=== PATIENT | female | born 1965 | race Caucasian/White ===

== ENCOUNTER 2016-07-27 22:34 | Emergency (ER) | payer BC ==
--- NOTE | 2016-07-27 23:21 | PDOC ---
[id number] [id number] 07/27/16 23:15 History Source: Unavil. due to pt. cond. Exam Limitations: Clinical Condition, Intoxication - History of Present Illness Initial Comments: 07/27/16 23:19 ENTERED ROOM TO EVALUATE PATIENT. PATIENT LYING WITH EYES CLOSED NOT RESPONDING TO VERBAL OR TACTILE STIMULUS. PATIENT ASSISTED TO SIT UP IN BED, TURNED TO HER RIGHT SIDE AND WENT BACK TO SLEEP. PATIENT IN NO ACUTE DISTRESS AT THIS TIME. WILL ATTEMPT TO RE-EVALUATE PATIENT SHORTLY. 07/28/16 01:54 2ND ATTEMPT AT RE-EVALUATION OF PATIENT. PATIENT TOLD PROVIDER TO LEAVE HER ALONE, SHE IS HERE TO SLEEP. PATIENT NO LONGER ANSWERING QUESTIONS AT THIS POINT. WILL CONTINUE TO REASSESS AND EVALUATE. 07/28/16 06:08 PATIENT AWAKE, ALERT AND COOPERATIVE. NO ACUTE DISTRESS NOTED. PATIENT STATES SHE WOULD LIKE TO GO TO [facility]. SHE WAS RECENTLY IN [facility] AND STAYED FOR 14 DAYS , BUT LEFT BECAUSE SHE WANTED TO DRINK. PATIENT REPORTS THAT HER LAST ALCOHOLIC DRINK WAS YESTERDAY. SHE DENIES CHEST PAIN, ABD PAIN , N/V/D, FEVER, DYSURIA, HEMATURIA, BACK PAIN, OR ANY OTHER COMPLAINTS AT THIS TIME. Past History - Travel Traveled outside of the country in the last 30 days: No Close contact w/someone who was outside of country & ill: No - Past Medical History Allergies/Adverse Reactions: Allergies Allergy/AdvReac Type Severity Reaction Status Date / Time No Known Allergies Allergy Verified 07/28/16 04:52 Home Medications: Ambulatory Orders Cephalexin [Keflex] 500 mg PO BID #14 capsule 07/28/16 Cephalexin Monohydrate [Keflex -] 500 mg PO BID #14 capsule 07/31/16 Asthma: No Cardiac Disorders: No COPD: No Diabetes: No GI Disorders: No Disorders: No HTN: Yes Kidney Stones: No Suicide Attempt (Hx): No Seizures: Yes (No activity in the past 15 years) - Reproductive History PID: No - Psycho/Social/Smoking Cessation Hx Anxiety: No Suicidal Ideation: No Smoking History: Current every day smoker Have you smoked in the past 12 months: Yes Number of Cigarettes Smoked Daily: 12 Cigars Per Day: 0 'Breaking Loose' booklet given: 12/08/12 Hx Alcohol Use: Yes (4 bloody ken and 4-16oz beers/2 days) Drug/Substance Use Hx: No Substance Use Type: Alcohol Hx Substance Use Treatment: No Review of Systems - Review of Systems Able to Perform ROS?: Yes Is the patient limited Swedish proficient: No Constitutional: No: Chills, Fever, Night Sweats Respiratory: No: Cough, Stridor, Wheezing Cardiac (ROS): No: Chest Pain, Palpitations, Syncope, Chest Tightness ABD/GI: No: Constipated, Diarrhea, Nausea, Poor Appetite, Poor Fluid Intake, Rectal Bleeding, Vomiting, Tarry Stools : No: Burning, Dysuria, Discharge, Frequency, Flank Pain, Hematuria, Pain, Urgency Musculoskeletal: No: Back Pain, Joint Pain, Joint Swelling Integumentary: No: Bruising, Erythema, Rash Neurological: No: Headache, Numbness, Seizure, Tremors, Weakness, Unsteady Gait , Ataxia, Dizziness All Other Systems: Reviewed and Negative *Physical Exam - Physical Exam Comments: 07/28/16 06:15 THIS PHYSICAL EXAMINATION WAS DONE A 0615. PRIOR ATTEMPTS UNSUCCESSFUL. PATIENT REFUSED. General Appearance: Yes: Disheveled, Alcohol on Breath, Intoxicated HEENT: positive: EOMI, SERG, Normal ENT Inspection, Normal Voice, Symmetrical, TMs Normal, Pharynx Normal. negative: Nasal Congestion, Rhinorrhea, TM Bulging , TM Dull, TM Erythema Neck: positive: Trachea midline, Supple. negative: Stridor, Lymphadenopathy (R) , Lymphadenopathy (L) Respiratory/Chest: positive: Lungs Clear, Normal Breath Sounds. negative: Respiratory Distress, Accessory Muscle Use, Labored Respiration, Rapid RR, Rhonchi, Stridor, Wheezing Cardiovascular: positive: Regular Rhythm, Regular Rate. negative: Edema, JVD, Murmur Gastrointestinal/Abdominal: positive: Normal Bowel Sounds, Soft. negative: Distended, Guarding, Rebound, Tenderness Musculoskeletal: positive: Normal Inspection. negative: CVA Tenderness Extremity: positive: Normal Capillary Refill, Normal Inspection, Normal Range of Motion. negative: Pedal Edema, Swelling Integumentary: positive: Normal Color, Dry, Warm. 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 ALCOHOL/SUBS ABUSE REHAB Condition at time of disposition: Good Admit: No - Prescriptions Prescriptions: Cephalexin [Keflex] 500 mg PO BID #14 capsule - Patient Instructions Printed Discharge Instructions: DI for Urinary Tract Infection (UTI), DI for Alcohol Abuse Additional Instructions: Please take Keflex as prescribed until completed. Please eat well-balanced meals as your magnesium was low today.
[2016-07-28 04:56] VITALS: BP 128/100; PULSE 78; TEMP 97.9; BMI 21.7
[2016-07-28] MEDS ORDERED: SODIUM CHLORIDE 1,000 ML IV STA (06:07)
[2016-07-28] MEDS ORDERED: FAMOTIDINE 20 MG/50 ML IVPB 50 ML IVPB ONE ×2 (06:07→06:39)
[2016-07-28 07:19] LABS: BASOPHIL 1.4 % (0-2.0); EOSINOPHIL 1.4 % (0-4.5); MCH 36.6 pg (25.7-33.7); MCHC 34.6 g/dl (32.0-36.0); MEAN CELL VOLUME 105.9 fl (80-96); MEAN PLT VOLUME 9.2 fl (7.5-11.1); NEUTROPHILS 51.5 % (42.8-82.8); PLATELET COUNT 112 K/MM3 (134-434); RDW 13.9 % (11.6-15.6); WHITE BLOOD COUNT 5.9 K/mm3 (4.0-10.0)
--- NOTE | 2016-07-28 07:27 | PDOC ---
*Physical Exam - Vital Signs Last Vital Signs Temp Pulse Resp BP Pulse Ox 97.9 F 78 19 128/100 99 07/28/16 04:53 07/28/16 04:53 07/28/16 04:53 07/28/16 04:53 07/28/16 04:53 Heart Score/ECG Review - ECG Intrepretation Rhythm: Regular Rhythm (rate 62, Left atrial enlargment. No acute findings) ED Treatment Course - LABORATORY CBC & Chemistry Diagram: 07/28/16 06:30 07/28/16 06:30 - Medications Given in the ED: ED Medications Discontinued Medications Generic Name Dose Route Start Last Admin Trade Name Jaredq PRN Reason Stop Dose Admin Famotidine/Sodium Chloride 50 mls @ 100 mls/hr 07/28/16 06:07 07/28/16 06:50 Pepcid 20 Mg Premixed Ivpb - IVPB 07/28/16 06:36 100 mls/hr ONCE ONE Administration Sodium Chloride 1,000 mls @ 1,000 mls/hr 07/28/16 06:07 07/28/16 06:49 Normal Saline - IV 07/28/16 07:06 1,000 mls/hr ASDIR STA Administration Medical Decision Making - Medical Decision Making 07/28/16 07:27 Patient received in sign out from EMAIL MANAGER Femi. Patient here for alcohol intoxication now requesting detox. Labs including EKG are pending. 07/28/16 09:16 Laboratory Tests 07/28/16 07/28/16 07/28/16 06:30 06:30 06:30 WBC 5.9 D Hgb 13.4 Hct 38.8 MCV 105.9 H Neutrophils % 51.5 Monocytes % 14.9 H Sodium 142 Potassium 3.5 Chloride 101 Carbon Dioxide 29 Anion Gap 12 BUN 6 L D Creatinine 0.4 L Calcium 8.0 L Magnesium 1.6 L Urine Nitrite Ur Leukocyte Esterase Urine HCG, Qual Salicylates < 4.0 Acetaminophen < 2.0 L Alcohol, Quantitative 136.3 H* 07/28/16 07:10 WBC Hgb Hct MCV Neutrophils % Monocytes % Sodium Potassium Chloride Carbon Dioxide Anion Gap BUN Creatinine Calcium Magnesium Urine Nitrite Positive Ur Leukocyte Esterase 1+ H Urine HCG, Qual Negative Salicylates Acetaminophen Alcohol, Quantitative Laboratory Tests 07/28/16 07:10 Urine RBC 2 Urine WBC 23 Urine Mucus Moderate Patient has urine culture from 2012 that was positive for Escherichia coli sensitive to cephalosporins. Patient be discharged to rehabilitation with Keflex. Patient also will be given 2 g of magnesium secondary to low mag here in the ER and then sent over to [facility] detox. *DC/Admit/Observation/Transfer Diagnosis at time of Disposition: Hypomagnesemia, Alcohol dependence UTI (urinary tract infection) Qualifiers: Urinary tract infection type: acute cystitis Hematuria presence: without hematuria Qualified Code(s): N30.00 - Acute cystitis without hematuria - Discharge Dispostion Disposition: I.P. ALCOHOL/SUBS ABUSE REHAB Condition at time of disposition: Good - Prescriptions Prescriptions: Cephalexin [Keflex] 500 mg PO BID #14 capsule - Patient Instructions Printed Discharge Instructions: DI for Alcohol Abuse, DI for Urinary Tract Infection (UTI) Additional Instructions: Please take Keflex as prescribed until completed. Please eat well-balanced meals as your magnesium was low today.
[2016-07-28 07:32] LABS: ANION GAP 12 (8-16); CO2 29 mmol/L (21-32); CREATININE 0.4 mg/dL (0.55-1.02); GLUCOSE,RANDOM 80 mg/dL (74-106)
[2016-07-28 07:34] LABS: TROPONIN I < 0.02 ng/ml (0.00-0.05)
[2016-07-28 07:50] LABS: SALICYLATE < 4.0 mg/dl (0.0-30.0)
[2016-07-28 07:52] LABS: ALCOHOL 136.3 mg/dl (0-5)
[2016-07-28 08:56] LABS: MAGNESIUM 1.6 mg/dL (1.8-2.4)
[2016-07-28 09:02] LABS: URINE APPEARANCE SLCLOUDY; URINE BILIRUBIN NEGATIVE (NEGATIVE); URINE BLOOD NEGATIVE (NEGATIVE); URINE COLOR DKYELLOW; URINE GLUCOSE (UA) NEGATIVE (NEGATIVE); URINE KETONE NEGATIVE (NEGATIVE); URINE NITRITE POSITIVE (NEGATIVE); URINE PROTEIN NEGATIVE (NEGATIVE); URINE UROBILINOGEN NEGATIVE E.U./dl (0.2-1.0)
[2016-07-28 09:11] LABS: URINE LEUK ESTERASE 1+ (NEGATIVE)
[2016-07-28 09:15] LABS: URINE BACTERIA RARE /hpf (NONE SEEN); URINE HYALINE CAST 2 /lpf; URINE MUCUS MODERATE; URINE RBC 2 /hpf (0-3); URINE WBC 23 /hpf (3-5)
[2016-07-28] MEDS ORDERED: MAGNESIUM SULF 50% (8.12 MEQ/2 ML-1 GM VIAL) IVPB ONE (09:15)
[2016-07-28] MEDS ORDERED: MAGNESIUM SULF 50% (8.12 MEQ/2 ML-1 GM VIAL) ONE (09:16)
[2016-07-28 15:09] LABS: URINE MARIJUANA THC POSITIVE ng/ml (CUTOFF=50)
--- NOTE | 2016-07-28 17:45 | EKG ---
Test Reason : Blood Pressure : / mmHG Vent. Rate : 062 BPM Atrial Rate : 062 BPM P-R Int : 130 ms QRS Dur : 084 ms QT Int : 480 ms P-R-T Axes : 060 044 053 degrees QTc Int : 487 ms NORMAL SINUS RHYTHM POSSIBLE LEFT ATRIAL ENLARGEMENT PROLONGED QT ABNORMAL ECG NO PREVIOUS ECGS AVAILABLE Confirmed by ELIAS VILLAVICENCIO, SANNA ([id number]) on 07/28/2016 5:44:44 PM Referred By: Confirmed By:SANNA GRIFFIN MD
== END 2016-07-28 09:45 | disposition other institution (70) ==
LOC: JER 22:34
PROC: 3E033GC Introduction of Other Therapeutic Substance into Peripheral Vein, Percutaneous Approach (ICD-10-PCS; principal; 2016-07-27)
DX: F10.220 Alcohol dependence with intoxication, uncomplicated (principal); Y90.6 Blood alcohol level of 120-199 mg/100 ml; N39.0 Urinary tract infection, site not specified; B96.29 Other Escherichia coli [E. coli] as the cause of diseases classified elsewhere; E83.42 Hypomagnesemia
CPT/HCPCS: 36415; 80048; 80307; 81003; 81015; 82550; 83735; 84484; 84703; 85025; 87086; 87186; 93005; 93010; 96365; 96375; 99284-25

== ENCOUNTER 2016-07-28 10:12 | Inpatient (IN) | payer BC ==
[2016-07-28 10:44] VITALS: BMI 21.3
--- NOTE | 2016-07-28 12:27 | HP ---
CIWA Score - CIWA Score Nausea/Vomitin-No Nausea/No Vomiting Muscle Tremors: 4-Moderate,w/Arms Extend Anxiety: 4-Mod. Anxious/Guarded Agitation: 4-Moderately Restless Paroxysmal Sweats: 3 Orientation: 0-Oriented Tacttile Disturbances: 0-None Auditory Disturbances: 0-None Visual Disturbances: 0-None Headache: 1-Very Mild CIWA-Ar Total Score: 16 Admission ROS [facility] - HPI Chief Complaint: I am here to detox and try to stay sober. Allergies/Adverse Reactions: Allergies Allergy/AdvReac Type Severity Reaction Status Date / Time No Known Allergies Allergy Verified 07/28/16 10:48 History of Present Illness: pt is a 50yr old female with a history of alcohol dependence seeking detox for treatment. Exam Limitations: No Limitations - Ebola screening Have you traveled outside of the country in the last 21 days: No Have you had contact with anyone from an Ebola affected area: No Have you been sick,other than usual withdrawal symptoms: No Do you have a fever: No - Review of Systems Constitutional: Chills, Diaphoresis, Loss of Appetite, Night Sweats, Unintentional Wgt. Loss EENT: reports: Tearing Respiratory: reports: Cough Cardiac: reports: No Symptoms Reported GI: reports: Diarrhea, Poor Appetite, Poor Fluid Intake : reports: No Symptoms Reported Musculoskeletal: reports: Back Pain, Joint Pain, Muscle Pain Integumentary: reports: Flushing, Sweating Neuro: reports: Headache, Tingling, Tremors Endocrine: reports: Excessive Sweating, Flushing, Intolerance to Cold, Intolerance to Heat Hematology: reports: No Symptoms Reported Psychiatric: reports: Judgement Intact, Orientated x3, Agitated, Anxious Other Systems: Reviewed and Negative Patient History - Patient Medical History Hx Anemia: No Hx Asthma: No Hx Chronic Obstructive Pulmonary Disease (COPD): No Hx Cancer: No Hx Cardiac Disorders: No Hx Congestive Heart Failure: No Hx Hypertension: Yes (not taking any meds) Hx Pacemaker: No HX Cerebrovascular Accident: Yes (last stroke 5yrs ago.) Hx Seizures: No Hx Dementia: No Hx Diabetes: No Hx Gastrointestinal Disorders: No Hx Liver Disease: No Hx Genitourinary Disorders: No Hx Sexually Transmitted Disorders: No Hx Renal Disease (ESRD): No Hx Human Immunodeficiency Virus (HIV): No (negative 2 months ago) Hx Depression: Yes Hx Suicide Attempt: No (denies) Hx Bipolar Disorder: No Hx Schizophrenia: No - Patient Surgical History Past Surgical History: No - PPD History Previous Implant?: Yes Documented Results: Negative w/o proof Implanted On Prior [facility] Admission?: Yes PPD to be Administered?: No - Reproductive History Patient is a Female of Child Bearing Age (11 -55 yrs old): Yes Last Menstrual Period: 06/22/16 Patient : No - Smoking Cessation Smoking history: Current every day smoker Have you smoked in the past 12 months: Yes Aproximately how many cigarettes per day: 20 Cigars Per Day: 0 Hx Chewing Tobacco Use: No Initiated information on smoking cessation: Yes 'Breaking Loose' booklet given: 07/28/16 - Substance & Tx. History Hx Alcohol Use: Yes Hx Substance Use: No Substance Use Type: Alcohol Hx Substance Use Treatment: Yes - Substances Abused Alcohol Route: Oral Frequency: Daily Amount used: 10 BEERS Age of first use: 20 Date of Last Use: 07/28/16 Family Disease History - Family Disease History Family History: Denies Admission Physical Exam [facility] - Vital Signs Vital Signs: Vital Signs - 24 hr 07/28/16 10:38 Temperature 96.1 F L Pulse Rate 89 Respiratory 18 Rate Blood Pressure 150/100 - Physical General Appearance: Yes: Disheveled, Moderate Distress, Tremorous, Irritable, Sweating, Anxious HEENTM: Yes: Normal Voice Respiratory: Yes: Lungs Clear, Normal Breath Sounds, No Respiratory Distress Neck: Yes: Within Normal Limits Breast: Yes: Within Normal Limits Cardiology: Yes: Regular Rate, S1, S2, Tachycardia Abdominal: Yes: Normal Bowel Sounds, Non Tender, Soft Genitourinary: Yes: Within Normal Limits Back: Yes: Normal Inspection Extremities: Yes: Normal Capillary Refill, Normal Inspection, Non-Tender, Tremors Neurological: Yes: Fully Oriented, Alert, Normal Response Integumentary: Yes: Normal Color, Diaphoresis Lymphatic: Yes: Within Normal Limits - Diagnostic (1) Alcohol dependence with uncomplicated withdrawal Current Visit: Yes Status: Chronic (2) Nicotine dependence Current Visit: Yes Status: Chronic Cleared for Admission [facility] - Detox or Rehab [facility] Level of Care: Medically Managed Detox Regimen/Protocol: Librium [facility] Breath Alcohol Content Breath Alcohol Content: 0.034 Urine Pregancy Test - Result Urine Test Results: Negative- NO Line Present Urine Drug Screen - Results Drug Screen Negative: No Urine Drug Screen Results: EDSON-Cocaine
[2016-07-28] MEDS ORDERED: IBUPROFEN 400 MG TABLET (FP) PO PRN (12:30)
[2016-07-28] MEDS ORDERED: chlordiazePOXIDE HCL 25 MG CAPSULE PO PRN (12:30)
[2016-07-28] MEDS ORDERED: LOPERAMIDE HCL 2 MG CAPSULE PO PRN (12:30)
[2016-07-28] MEDS ORDERED: MAGNESIUM CITRATE 300 ML BOTTLE PO PRN (12:30)
[2016-07-28] MEDS ORDERED: hydrOXYzine PAMOATE 50 MG CAPSULE (FP) PO PRN (12:30)
[2016-07-28] MEDS ORDERED: MENTHOL/PHENOL 1 EACH UD MM PRN (12:30)
[2016-07-28] MEDS ORDERED: guaiFENesin/D-METHORPHAN HB 10 ML UNIT-DOSE CUPS PO PRN (12:30)
[2016-07-28] MEDS ORDERED: ACETAMINOPHEN 325 MG TABLET (FP) PO PRN (12:30)
[2016-07-28] MEDS ORDERED: MAG HYDROX/AL HYDROX/SIMETH 30 ML UNIT-DOSE CUP PO PRN (12:30)
[2016-07-28] MEDS ORDERED: NICOTINE POLACRILEX 4 MG GUM BUC PRN (12:30)
[2016-07-28] MEDS ORDERED: MAGNESIUM HYDROX 2400MG/30ML ORAL SUSPENSION 30 ML CUP PO PRN (12:30)
[2016-07-28] MEDS ORDERED: P-EPHED 60MG/TRIPROLIDI 2.5MG TABLET PO PRN (12:30)
[2016-07-28] MEDS ORDERED: chlordiazePOXIDE HCL 25 MG CAPSULE PO ONE (12:39)
[2016-07-28] MEDS ORDERED: cloNIDine HCL 0.1 MG TABLET PO ONE (12:40)
[2016-07-28 16:06] LABS: URINE APPEARANCE TURBID; URINE BILIRUBIN NEGATIVE (NEGATIVE); URINE BLOOD 1+ (NEGATIVE); URINE COLOR AMBER; URINE GLUCOSE (UA) NEGATIVE (NEGATIVE); URINE KETONE NEGATIVE (NEGATIVE); URINE NITRITE POSITIVE (NEGATIVE); URINE PROTEIN 1+ (NEGATIVE); URINE UROBILINOGEN 2.0 E.U/dl E.U./dl (0.2-1.0)
[2016-07-28 16:07] LABS: URINE LEUK ESTERASE 3+ (NEGATIVE)
[2016-07-28 16:19] LABS: URINE BACTERIA FEW /hpf (NONE SEEN); URINE MUCUS RARE; URINE RBC 79 /hpf (0-3); URINE WBC 331 /hpf (3-5)
--- NOTE | 2016-07-28 17:42 | EKG ---
Test Reason : Blood Pressure : / mmHG Vent. Rate : 082 BPM Atrial Rate : 082 BPM P-R Int : 144 ms QRS Dur : 088 ms QT Int : 420 ms P-R-T Axes : 057 036 050 degrees QTc Int : 490 ms NORMAL SINUS RHYTHM POSSIBLE LEFT ATRIAL ENLARGEMENT NONSPECIFIC T WAVE ABNORMALITY PROLONGED QT ABNORMAL ECG WHEN COMPARED WITH ECG OF 28-JUL-2016 06:34, NO SIGNIFICANT CHANGE WAS FOUND Confirmed by ELIAS VILLAVICENCIO, SANNA ([id number]) on 07/28/2016 5:42:24 PM Referred By: Henri Smith Confirmed By:SANNA GRIFFIN MD
[2016-07-28] MEDS: chlordiazePOXIDE HCL 25 MG CAPSULE PO SCH ×2 (18:05→22:25)
[2016-07-28] MEDS: diphenhydrAMINE HCL 50 MG CAPSULE PO PRN (22:25)
[2016-07-28] MEDS: THIAMINE HCL 100 MG TABLET (FP) PO SCH (22:25)
[2016-07-28] MEDS: CEPHALEXIN MONOHYDRATE 500 MG CAPSULE (UD) PO SCH (22:25)
[2016-07-29] MEDS: chlordiazePOXIDE HCL 25 MG CAPSULE PO SCH ×4 (05:48→22:26)
--- NOTE | 2016-07-29 09:30 | CONSULT ---
[facility] Psychiatric Consult - Data Date of interview: 07/29/16 Admission source: [facility] Identifying data: This is 50 years old female with no psychiatric hospitalization history intoxicated with: Alcohol and Nicotine Substance Abuse History: - Smoking Cessation. Smoking history: Current every day smoker. Have you smoked in the past 12 months: Yes. Aproximately how many cigarettes per day: 20. Cigars Per Day: 0. Hx Chewing Tobacco Use: No. Initiated information on smoking cessation: Yes. 'Breaking Loose' booklet given : 07/28/16. - Substance & Tx. History. Hx Alcohol Use: Yes. Hx Substance Use : No. Substance Use Type: Alcohol. Hx Substance Use Treatment: Yes. - Substances Abused. Alcohol. Route: Oral. Frequency: Daily. Amount used: 10 BEERS. Age of first use: 20. Date of Last Use: 07/28/16 Medical History: UTI history Psychiatric History: Patient report history of depression and anxiety, reports n o medications taking prior to admission Physical/Sexual Abuse/Trauma History: Unclear Additional Comment: Observation. Detox Unit Care Protocol Mental Status Exam - Mental Status Exam Alert and Oriented to: Person Cognitive Function: Fair Patient Appearance: Unkempt Mood: Sad Affect: Flat Patient Behavior: Sedated Speech Pattern: Delayed Voice Loudness: Mildly Soft/Quiet Thought Process: Circumstantial Thought Disorder: Being Controlled Hallucinations: Denies Suicidal Ideation: Denies Homicidal Ideation: Denies Insight/Judgement: Fair Sleep: Difficulty falling asleep Appetite: Weight loss Muscle strength/Tone: Mild Hypotonicity Gait/Station: Shuffling Additional Comments: Observation. Detox Unit Care Protocol Psychiatric Findings - Problem List ([place] 1, 2,3) (1) Alcohol dependence with uncomplicated withdrawal Current Visit: Yes Status: Chronic (2) Nicotine dependence Current Visit: Yes Status: Chronic (3) Drug-induced mood disorder Current Visit: Yes Status: Suspected - Initial Treatment Plan Initial Treatment Plan: Observation. Detox Unit Care Protocol
[2016-07-29 10:23] LABS: MCH 36.6 pg (25.7-33.7); MEAN CELL VOLUME 107.6 fl (80-96); MEAN PLT VOLUME 9.7 fl (7.5-11.1); PLATELET COUNT 113 K/MM3 (134-434); RDW 13.9 % (11.6-15.6)
[2016-07-29] MEDS: CEPHALEXIN MONOHYDRATE 500 MG CAPSULE (UD) PO SCH ×2 (10:30→22:25)
[2016-07-29] MEDS: PRENATAL VITAMINS W/ FOLIC ACID TABLET (FP) PO SCH (10:30)
[2016-07-29 10:31] LABS: ALBUMIN 3.1 g/dl (3.4-5.0); ALK PHOS 186 U/L (45-117); ANION GAP 9 (8-16); BILIRUBIN,TOTAL 2.6 mg/dL (0.2-1.0); CALCIUM 8.8 mg/dL (8.5-10.1); CO2 29 mmol/L (21-32); CREATININE 0.5 mg/dL (0.55-1.02); GLUCOSE,RANDOM 83 mg/dL (74-106); SGOT/AST 106 U/L (15-37); SGPT/ALT 53 U/L (12-78); TOT PROT 7.4 g/dl (6.4-8.2)
[2016-07-29] MEDS: NICOTINE 21 MG/24 HOURS TOPICAL PATCH TD SCH (10:32)
[2016-07-29] MEDS ORDERED: PNEUMOC 13-VAL CONJ-DIP CRM/PF 0.5 ML DISP.SYRIN IM ONE (12:00)
[2016-07-29] MEDS ORDERED: PNEUMOCOCCAL 23 VACCINE 0.5 ML VIAL IM ONE (12:00)
--- NOTE | 2016-07-29 13:10 | PN ---
S CIWA - CIWA Score Nausea/Vomitin Muscle Tremors: 3 Anxiety: 3 Agitation: 3 Paroxysmal Sweats: 2 Orientation: 0-Oriented Tacttile Disturbances: 1-Very Mild Itch/Numbness Auditory Disturbances: 1-Very Mild Visual Disturbances: 1-Very Mild Sensitivity Headache: 2-Mild CIWA-Ar Total Score: 19 S Progress Note (SOAP) Subjective: ALERT,IRRITABLE,ANXIOUS,INTERRUPTED SLEEP,TREMOR Objective: 07/29/16 13:07 Vital Signs Temperature 98.2 F 07/29/16 10:16 Pulse Rate 77 07/29/16 10:16 Respiratory Rate 20 07/29/16 10:16 Blood Pressure 131/73 07/29/16 10:16 O2 Sat by Pulse Oximetry (%) EKG NSR NO CHEST PAIN,NO SOB,NO DIZZINESS Laboratory Last Values WBC 7.0 K/mm3 (4.0-10.0) 07/29/16 07:00 RBC 3.77 M/mm3 (3.60-5.2) 07/29/16 07:00 Hgb 13.8 GM/dL (10.7-15.3) 07/29/16 07:00 Hct 40.6 % (32.4-45.2) 07/29/16 07:00 MCV 107.6 fl (80-96) H 07/29/16 07:00 MCHC 34.0 g/dl (32.0-36.0) 07/29/16 07:00 RDW 13.9 % (11.6-15.6) 07/29/16 07:00 Plt Count 113 K/MM3 (134-434) L 07/29/16 07:00 MPV 9.7 fl (7.5-11.1) 07/29/16 07:00 Sodium 138 mmol/L (136-145) 07/29/16 07:00 Potassium 3.5 mmol/L (3.5-5.1) 07/29/16 07:00 Chloride 100 mmol/L (98-107) 07/29/16 07:00 Carbon Dioxide 29 mmol/L (21-32) 07/29/16 07:00 Anion Gap 9 (8-16) 07/29/16 07:00 BUN 6 mg/dL (7-18) L 07/29/16 07:00 Creatinine 0.5 mg/dL (0.55-1.02) L D 07/29/16 07:00 Creat Clearance w eGFR > 60 (>60) 07/29/16 07:00 Random Glucose 83 mg/dL (74-106) 07/29/16 07:00 Calcium 8.8 mg/dL (8.5-10.1) 07/29/16 07:00 Total Bilirubin 2.6 mg/dL (0.2-1.0) H D 07/29/16 07:00 AST 106 U/L (15-37) H 07/29/16 07:00 ALT 53 U/L (12-78) D 07/29/16 07:00 Alkaline Phosphatase 186 U/L (45-117) H 07/29/16 07:00 Total Protein 7.4 g/dl (6.4-8.2) 07/29/16 07:00 Albumin 3.1 g/dl (3.4-5.0) L D 07/29/16 07:00 Urine Color Eliana 07/28/16 14:00 Urine Appearance Turbid 07/28/16 14:00 Urine pH 6.0 (5.0-8.0) 07/28/16 14:00 Ur Specific [place] 1.016 (1.001-1.035) 07/28/16 14:00 Urine Protein 1+ (NEGATIVE) H 07/28/16 14:00 Urine Glucose (UA) Negative (NEGATIVE) 07/28/16 14:00 Urine Ketones Negative (NEGATIVE) 07/28/16 14:00 Urine Blood 1+ (NEGATIVE) H 07/28/16 14:00 Urine Nitrite Positive (NEGATIVE) 07/28/16 14:00 Urine Bilirubin Negative (NEGATIVE) 07/28/16 14:00 Urine Urobilinogen 2.0 e.u/dl E.U./dl (0.2-1.0) H 07/28/16 14:00 Ur Leukocyte Esterase 3+ (NEGATIVE) H D 07/28/16 14:00 Urine RBC 79 /hpf (0-3) 07/28/16 14:00 Urine WBC 331 /hpf (3-5) 07/28/16 14:00 Ur Epithelial Cells Many /hpf (FEW) 07/28/16 14:00 Urine Bacteria Few /hpf (NONE SEEN) 07/28/16 14:00 Urine Mucus Rare 07/28/16 14:00 RPR Titer Nonreactive (NONREACTIVE) 07/29/16 07:00 Assessment: 07/29/16 13:09 WITHDRAWAL SYMPTOM Plan: CONTINUE DETOX,REPEAT UA,URINE FOR C/S,D/C TYLENOL FOR ELEVATION OF ALT,AST
[2016-07-29] MEDS ORDERED: LEVOFLOXACIN 500 MG TABLET (FP) PO SCH (13:15)
[2016-07-29 21:48] LABS: URINE APPEARANCE CLEAR; URINE BILIRUBIN NEGATIVE (NEGATIVE); URINE BLOOD NEGATIVE (NEGATIVE); URINE COLOR YELLOW; URINE GLUCOSE (UA) NEGATIVE (NEGATIVE); URINE KETONE NEGATIVE (NEGATIVE); URINE NITRITE NEGATIVE (NEGATIVE); URINE PROTEIN NEGATIVE (NEGATIVE); URINE UROBILINOGEN 4.0 E.U/dl E.U./dl (0.2-1.0)
[2016-07-29 21:51] LABS: URINE LEUK ESTERASE 1+ (NEGATIVE)
[2016-07-29 21:57] LABS: URINE BACTERIA RARE /hpf (NONE SEEN); URINE MUCUS RARE; URINE RBC 2 /hpf (0-3); URINE WBC 10 /hpf (3-5)
[2016-07-29] MEDS: THIAMINE HCL 100 MG TABLET (FP) PO SCH (22:24)
[2016-07-29] MEDS: diphenhydrAMINE HCL 50 MG CAPSULE PO PRN (22:25)
[2016-07-30] MEDS: chlordiazePOXIDE HCL 25 MG CAPSULE PO SCH ×2 (06:15→11:23)
--- NOTE | 2016-07-30 10:53 | PDOC ---
Patient Follow-up (Call Back) - Post ED Follow - Up Reason for Call Back: Abnwl. Microbiology (urine culture non lactose fermenting GNB >100, 000 pt. is on keflex 500 mg bid called detox spoke to FINANCIAL PLANNING ANALYST there she is aware of UTI, there was no sensitvity done, she will get this, FINANCIAL PLANNING ANALYST also reports that pt. had a letter from her MD stating that she can only take keflex for infection.)
[2016-07-30] MEDS: PRENATAL VITAMINS W/ FOLIC ACID TABLET (FP) PO SCH (11:20)
[2016-07-30] MEDS: CEPHALEXIN MONOHYDRATE 500 MG CAPSULE (UD) PO SCH ×2 (11:20→22:16)
[2016-07-30] MEDS: NICOTINE 21 MG/24 HOURS TOPICAL PATCH TD SCH (11:22)
--- NOTE | 2016-07-30 13:59 | PN ---
S CIWA - CIWA Score Nausea/Vomitin-No Nausea/No Vomiting Muscle Tremors: 4-Moderate,w/Arms Extend Anxiety: 3 Agitation: 3 Paroxysmal Sweats: 3 Orientation: 0-Oriented Tacttile Disturbances: 0-None Auditory Disturbances: 0-None Visual Disturbances: 0-None Headache: 0-None Present CIWA-Ar Total Score: 13 S Progress Note (SOAP) Subjective: sweats irritable tired agitation Objective: 07/30/16 13:57 Vital Signs Temperature 97.7 F 07/30/16 10:18 Pulse Rate 72 07/30/16 10:18 Respiratory Rate 20 07/30/16 10:18 Blood Pressure 143/92 07/30/16 10:18 O2 Sat by Pulse Oximetry (%) Laboratory Tests 07/28/16 07/29/16 07/29/16 14:00 07:00 07:00 WBC 7.0 RBC 3.77 Hgb 13.8 Hct 40.6 MCV 107.6 H MCHC 34.0 RDW 13.9 Plt Count 113 L MPV 9.7 Sodium 138 Potassium 3.5 Chloride 100 Carbon Dioxide 29 Anion Gap 9 BUN 6 L Creatinine 0.5 L D Creat Clearance w eGFR > 60 Random Glucose 83 Calcium 8.8 Total Bilirubin 2.6 H D AST 106 H ALT 53 D Alkaline Phosphatase 186 H Total Protein 7.4 Albumin 3.1 L D Urine Color Eliana Urine Appearance Turbid Urine pH 6.0 Ur Specific [place] 1.016 Urine Protein 1+ H Urine Glucose (UA) Negative Urine Ketones Negative Urine Blood 1+ H Urine Nitrite Positive Urine Bilirubin Negative Urine Urobilinogen 2.0 e.u/dl H Ur Leukocyte Esterase 3+ H D Urine RBC 79 Urine WBC 331 Ur Epithelial Cells Many Urine Bacteria Few Urine Mucus Rare RPR Titer 07/29/16 07/29/16 07:00 20:30 WBC RBC Hgb Hct MCV MCHC RDW Plt Count MPV Sodium Potassium Chloride Carbon Dioxide Anion Gap BUN Creatinine Creat Clearance w eGFR Random Glucose Calcium Total Bilirubin AST ALT Alkaline Phosphatase Total Protein Albumin Urine Color Yellow Urine Appearance Clear Urine pH 9.0 H D Ur Specific [place] 1.012 Urine Protein Negative Urine Glucose (UA) Negative Urine Ketones Negative Urine Blood Negative Urine Nitrite Negative Urine Bilirubin Negative Urine Urobilinogen 4.0 e.u/dl H Ur Leukocyte Esterase 1+ H D Urine RBC 2 Urine WBC 10 Ur Epithelial Cells Rare Urine Bacteria Rare Urine Mucus Rare RPR Titer Nonreactive awake/alert ambulating no acute distress u/a c&s pending pt is currently taking keflex as per pt MD for her UTI as per pt report she brought in shown at admission Assessment: 07/30/16 13:59 withdrawal sx Plan: continue detox increase fluids f/u pending labs
[2016-07-30] MEDS ORDERED: cloNIDine HCL 0.1 MG TABLET PO ONE (14:00)
[2016-07-30] MEDS: chlordiazePOXIDE 5 MG CAPSULE PO SCH ×3 (18:35→22:18)
[2016-07-30] MEDS: THIAMINE HCL 100 MG TABLET (FP) PO SCH (22:16)
[2016-07-31] MEDS: chlordiazePOXIDE 5 MG CAPSULE PO SCH ×2 (07:36→11:05)
[2016-07-31] MEDS: PRENATAL VITAMINS W/ FOLIC ACID TABLET (FP) PO SCH (10:15)
[2016-07-31] MEDS: CEPHALEXIN MONOHYDRATE 500 MG CAPSULE (UD) PO SCH (10:15)
[2016-07-31 10:37] VITALS: BP 94/53; PULSE 90; TEMP 97.7
[2016-07-31] MEDS: NICOTINE 21 MG/24 HOURS TOPICAL PATCH TD SCH (11:04)
--- NOTE | 2016-07-31 11:40 | PN ---
[facility] Progress Note (SOAP) Subjective: agitation sweats Objective: 07/31/16 11:39 Vital Signs Temperature 97.7 F 07/31/16 10:36 Pulse Rate 90 07/31/16 10:36 Respiratory Rate 18 07/31/16 10:36 Blood Pressure 94/53 07/31/16 10:36 O2 Sat by Pulse Oximetry (%) Laboratory Tests 07/28/16 07/29/16 07/29/16 14:00 07:00 07:00 WBC 7.0 RBC 3.77 Hgb 13.8 Hct 40.6 MCV 107.6 H MCHC 34.0 RDW 13.9 Plt Count 113 L MPV 9.7 Sodium 138 Potassium 3.5 Chloride 100 Carbon Dioxide 29 Anion Gap 9 BUN 6 L Creatinine 0.5 L D Creat Clearance w eGFR > 60 Random Glucose 83 Calcium 8.8 Total Bilirubin 2.6 H D AST 106 H ALT 53 D Alkaline Phosphatase 186 H Total Protein 7.4 Albumin 3.1 L D Urine Color Eliana Urine Appearance Turbid Urine pH 6.0 Ur Specific [place] 1.016 Urine Protein 1+ H Urine Glucose (UA) Negative Urine Ketones Negative Urine Blood 1+ H Urine Nitrite Positive Urine Bilirubin Negative Urine Urobilinogen 2.0 e.u/dl H Ur Leukocyte Esterase 3+ H D Urine RBC 79 Urine WBC 331 Ur Epithelial Cells Many Urine Bacteria Few Urine Mucus Rare RPR Titer 07/29/16 07/29/16 07:00 20:30 WBC RBC Hgb Hct MCV MCHC RDW Plt Count MPV Sodium Potassium Chloride Carbon Dioxide Anion Gap BUN Creatinine Creat Clearance w eGFR Random Glucose Calcium Total Bilirubin AST ALT Alkaline Phosphatase Total Protein Albumin Urine Color Yellow Urine Appearance Clear Urine pH 9.0 H D Ur Specific [place] 1.012 Urine Protein Negative Urine Glucose (UA) Negative Urine Ketones Negative Urine Blood Negative Urine Nitrite Negative Urine Bilirubin Negative Urine Urobilinogen 4.0 e.u/dl H Ur Leukocyte Esterase 1+ H D Urine RBC 2 Urine WBC 10 Ur Epithelial Cells Rare Urine Bacteria Rare Urine Mucus Rare RPR Titer Nonreactive micro for urine pending awake/alert ambulating no acute distress Assessment: 07/31/16 11:40 withdrawal sx Plan: continue detox increase fluids d/c in am
--- NOTE | 2016-07-31 13:14 | DS ---
[facility] Detox Discharge Summary Admission Date: 07/28/16 Discharge Date: 07/31/16 - History Present History: Alcohol Dependence - Physical Exam Results Vital Signs: Vital Signs Temperature 97.7 F 07/31/16 10:36 Pulse Rate 90 07/31/16 10:36 Respiratory Rate 18 07/31/16 10:36 Blood Pressure 94/53 07/31/16 10:36 O2 Sat by Pulse Oximetry (%) - Treatment Hospital Course: Detox Protocol Followed, Detoxed Safely, Responded well, Discharged Condition Good, Rehab Referral Accepted - Medication Discharge Medications: Ambulatory Orders Cephalexin [Keflex] 500 mg PO BID #14 capsule 07/28/16 - Diagnosis (1) Alcohol dependence with uncomplicated withdrawal Current Visit: Yes Status: Chronic (2) Nicotine dependence Current Visit: Yes Status: Chronic - AMA Did Patient Leave Against Medical Advice: No
[2016-07-31] MEDS ORDERED: chlordiazePOXIDE HCL 10 MG CAPSULE PO SCH (17:00)
== END 2016-07-31 13:07 | disposition home or self-care (01) | DRG 775 ==
LOC: YASAS 10:12 → Y6N 11:32
PROVIDERS: ADMIT Internal Medicine; ATTEND Internal Medicine
PROC: HZ2ZZZZ Detoxification Services for Substance Abuse Treatment (ICD-10-PCS; principal; 2016-07-31)
DX: F10.230 Alcohol dependence with withdrawal, uncomplicated (principal); F17.210 Nicotine dependence, cigarettes, uncomplicated; F19.24 Other psychoactive substance dependence with psychoactive substance-induced mood disorder
CPT/HCPCS: 36415; 80053; 81003; 81015; 85027; 86593; 87086; 93005; 93010

== ENCOUNTER 2017-01-18 14:49 | Inpatient (IN) | payer BC, OTHER ==
[2017-01-18 16:59] VITALS: BMI 22.6
--- NOTE | 2017-01-18 17:56 | HP ---
CIWA Score - CIWA Score Nausea/Vomitin Muscle Tremors: 2 Anxiety: 3 Agitation: 3 Paroxysmal Sweats: 2 Orientation: 0-Oriented Tacttile Disturbances: 2-Mild Itch/Numbness/Burn Auditory Disturbances: 2-Mild Harshness/Frighten Visual Disturbances: 2-Mild Sensitivity Headache: 2-Mild CIWA-Ar Total Score: 21 Admission ROS BHS - HPI Chief Complaint: I NEED HELP TO STOP DRINKING ALCOHOL, Allergies/Adverse Reactions: Allergies Allergy/AdvReac Type Severity Reaction Status Date / Time No Known Allergies Allergy Verified 01/18/17 17:36 History of Present Illness: THIS 51 YEARS OLD FEMALE WITH ALCOHOL DEPENDENCE,SEEKING DETOX,LAST 07/28/16 TO 07/31/16 HISTORY OF HTN,NO MED HEAD INJURY HISTORY UTI NON COMPLIANCE ANXIETY,DEPRESSION,INSOMNIA LONGEST PERIOD OF SOBRIETY 2 YEARS ARTHRITIS OF HANDS Exam Limitations: No Limitations - Ebola screening Have you traveled outside of the country in the last 21 days: No Have you had contact with anyone from an Ebola affected area: No Have you been sick,other than usual withdrawal symptoms: No Do you have a fever: No - Review of Systems Constitutional: Loss of Appetite, Malaise, Night Sweats, Changes in sleep, Weakness EENT: reports: Nose Congestion Respiratory: reports: No Symptoms reported Cardiac: reports: Palpitations GI: reports: Nausea, Poor Appetite, Abdominal cramping : reports: Burning, Frequency Musculoskeletal: reports: Back Pain, Joint Pain, Muscle Pain Integumentary: reports: Dryness Neuro: reports: Headache, Tremors Endocrine: reports: No Symptoms Reported Hematology: reports: No Symptoms Reported Psychiatric: reports: Anxious, Depressed, other (INSOMNIA) Patient History - Patient Medical History Hx Anemia: No Hx Asthma: No Hx Chronic Obstructive Pulmonary Disease (COPD): No Hx Cancer: No Hx Cardiac Disorders: No Hx Congestive Heart Failure: No Hx Hypertension: Yes (not taking any meds) Hx Pacemaker: No HX 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 2006) Hx Seizures: No Hx Dementia: No Hx Diabetes: No Hx Gastrointestinal Disorders: No Hx Liver Disease: No Hx Genitourinary Disorders: No Hx Sexually Transmitted Disorders: No Hx Renal Disease (ESRD): No Hx Human Immunodeficiency Virus (HIV): No (negative 2 months ago) Hx Depression: Yes (ANXIETY) Hx Suicide Attempt: No (denies) Hx Bipolar Disorder: No Hx Schizophrenia: No Other Medical History: NO SUICIDAL,NO HOMICIDAL - Patient Surgical History Past Surgical History: No - PPD History Previous Implant?: Yes Documented Results: Negative w/proof Implanted On Prior [facility] Admission?: Yes Date: 07/30/16 Results: O MM PPD to be Administered?: No - Reproductive History Patient is a Female of Child Bearing Age (11 -55 yrs old): Yes Last Menstrual Period: 06/22/16 Patient : No - Smoking Cessation Smoking history: Current every day smoker Have you smoked in the past 12 months: Yes Aproximately how many cigarettes per day: 20 Cigars Per Day: 0 Hx Chewing Tobacco Use: No Initiated information on smoking cessation: Yes 'Breaking Loose' booklet given: 01/18/17 - Substance & Tx. History Hx Alcohol Use: Yes Hx Substance Use: No Substance Use Type: Alcohol Hx Substance Use Treatment: Yes ([facility] 07/28/16 TO 07/31/16) - Substances Abused Alcohol Route: Oral Frequency: Daily Amount used: 6pk beer/ 3 shots vodka or rum Age of first use: 19 Date of Last Use: 01/18/17 Family Disease History - Family Disease History Family History: Denies Admission Physical Exam BHS - Vital Signs Vital Signs: Vital Signs - 24 hr 01/18/17 16:52 Temperature 102.5 F H Pulse Rate 113 H Respiratory 18 Rate Blood Pressure 141/85 - Physical General Appearance: Yes: Moderate Distress, Tremorous, Irritable, Sweating, Anxious HEENTM: Yes: Normal ENT Inspection, Normocephalic, SERG Respiratory: Yes: Lungs Clear, Normal Breath Sounds, No Respiratory Distress Neck: Yes: Within Normal Limits, Supple, Trachea in good position Breast: Yes: Breast Exam Deferred Cardiology: Yes: Tachycardia Abdominal: Yes: Within Normal Limits, Normal Bowel Sounds, Non Tender, Flat, Soft Genitourinary: Yes: Burning, Frequency Back: Yes: Normal Inspection, Muscle Spasm Musculoskeletal: Yes: full range of Motion, Back pain, Muscle Pain Extremities: Yes: Within Normal Limits, Normal Range of Motion, Tremors Neurological: Yes: 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 II-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 NML intact, Fully Oriented, Alert, Motor Strength 5/5 Integumentary: Yes: Dry Lymphatic: Yes: Within Normal Limits - Diagnostic (1) Alcohol dependence with uncomplicated withdrawal Current Visit: No Status: Chronic (2) Nicotine dependence Current Visit: No Status: Chronic (3) H/O recurrent urinary tract infection Current Visit: Yes Status: Acute (4) History of hypertension Current Visit: Yes Status: Acute (5) Anxiety and depression Current Visit: Yes Status: Acute (6) Insomnia Current Visit: Yes Status: Acute Cleared for Admission [facility] - Detox or Rehab [facility] Level of Care: Medically Managed Detox Regimen/Protocol: Librium [facility] Breath Alcohol Content Breath Alcohol Content: 0 Urine Pregancy Test - Result Urine Test Results: Negative- NO Line Present Urine Drug Screen - Results Drug Screen Negative: Yes
[2017-01-18] MEDS ORDERED: MAGNESIUM HYDROX 2400MG/30ML ORAL SUSPENSION 30 ML CUP PO PRN (18:09)
[2017-01-18] MEDS ORDERED: ACETAMINOPHEN 325 MG TABLET (FP) PO PRN (18:09)
[2017-01-18] MEDS ORDERED: diphenhydrAMINE HCL 50 MG CAPSULE PO PRN (18:09)
[2017-01-18] MEDS ORDERED: chlordiazePOXIDE HCL 25 MG CAPSULE PO ONE (18:09)
[2017-01-18] MEDS ORDERED: chlordiazePOXIDE HCL 25 MG CAPSULE PO PRN (18:09)
[2017-01-18] MEDS ORDERED: LOPERAMIDE HCL 2 MG CAPSULE PO PRN (18:09)
[2017-01-18] MEDS ORDERED: hydrOXYzine PAMOATE 25 MG CAPSULE (FP) PO PRN (18:09)
[2017-01-18] MEDS ORDERED: MAGNESIUM CITRATE 300 ML BOTTLE PO PRN (18:09)
[2017-01-18] MEDS ORDERED: MAG HYDROX/AL HYDROX/SIMETH 30 ML UNIT-DOSE CUP PO PRN (18:09)
[2017-01-18] MEDS ORDERED: P-EPHED 60MG/TRIPROLIDI 2.5MG TABLET PO PRN (18:09)
[2017-01-18] MEDS ORDERED: MENTHOL/PHENOL 1 EACH UD MM PRN (18:09)
[2017-01-18] MEDS ORDERED: guaiFENesin/D-METHORPHAN HB 10 ML UNIT-DOSE CUPS PO PRN (18:09)
[2017-01-18] MEDS: IBUPROFEN 400 MG TABLET (FP) PO PRN (19:07)
[2017-01-18] MEDS: NICOTINE 21 MG/24 HOURS TOPICAL PATCH TD SCH (19:07)
[2017-01-18] MEDS ORDERED: THIAMINE HCL 100 MG TABLET (FP) PO SCH (22:00)
[2017-01-18] MEDS: chlordiazePOXIDE HCL 25 MG CAPSULE PO SCH (22:53)
[2017-01-18] MEDS: CEPHALEXIN MONOHYDRATE 500 MG CAPSULE (UD) PO SCH (23:01)
[2017-01-19] MEDS: chlordiazePOXIDE HCL 25 MG CAPSULE PO SCH ×3 (05:57→17:30)
[2017-01-19] MEDS: IBUPROFEN 400 MG TABLET (FP) PO PRN ×2 (05:58→14:35)
[2017-01-19] MEDS: CEPHALEXIN MONOHYDRATE 500 MG CAPSULE (UD) PO SCH ×3 (05:58→17:33)
[2017-01-19] MEDS ORDERED: PRENATAL VITAMINS W/ FOLIC ACID TABLET (FP) PO SCH (10:00)
[2017-01-19 10:23] LABS: MCH 35.9 pg (25.7-33.7); MCHC 34.1 g/dl (32.0-36.0); MEAN CELL VOLUME 105.3 fl (80-96); MEAN PLT VOLUME 10.1 fl (7.5-11.1); PLATELET COUNT 115 K/MM3 (134-434); RDW 13.1 % (11.6-15.6); WHITE BLOOD COUNT 13.6 K/mm3 (4.0-10.0)
[2017-01-19 10:36] LABS: ALBUMIN 3.2 g/dl (3.4-5.0); ANION GAP 10 (8-16); BILIRUBIN,TOTAL 3.1 mg/dL (0.2-1.0); CALCIUM 8.8 mg/dL (8.5-10.1); CO2 28 mmol/L (21-32); CREATININE 0.6 mg/dL (0.55-1.02); GLUCOSE,RANDOM 107 mg/dL (74-106); SGOT/AST 64 U/L (15-37); SGPT/ALT 37 U/L (12-78); TOT PROT 7.7 g/dl (6.4-8.2)
[2017-01-19 10:37] LABS: ALK PHOS 136 U/L (45-117)
--- NOTE | 2017-01-19 11:41 | PN ---
[facility] CIWA - CIWA Score Nausea/Vomitin-No Nausea/No Vomiting Muscle Tremors: 4-Moderate,w/Arms Extend Anxiety: 4-Mod. Anxious/Guarded Agitation: 4-Moderately Restless Paroxysmal Sweats: 3 Orientation: 0-Oriented Tacttile Disturbances: 0-None Auditory Disturbances: 0-None Visual Disturbances: 0-None Headache: 1-Very Mild CIWA-Ar Total Score: 16 BHS Progress Note (SOAP) Subjective: irritable agitation anxiety sweats tired Objective: 01/19/17 11:39 Vital Signs Temperature 99.99 01/19/17 10:00 Pulse Rate 69 01/19/17 10:00 Respiratory Rate 18 01/19/17 10:00 Blood Pressure 121/98 01/19/17 10:00 O2 Sat by Pulse Oximetry (%) Laboratory Tests 01/19/17 01/19/17 06:30 06:30 WBC 13.6 H D RBC 4.12 Hgb 14.8 Hct 43.4 MCV 105.3 H MCH 35.9 H MCHC 34.1 RDW 13.1 Plt Count 115 L MPV 10.1 Sodium 130 L Chloride 92 L Carbon Dioxide 28 Anion Gap 10 BUN 12 D Creatinine 0.6 Creat Clearance w eGFR > 60 Random Glucose 107 H D Calcium 8.8 Total Bilirubin 3.1 H AST 64 H D ALT 37 D Alkaline Phosphatase 136 H D Total Protein 7.7 Albumin 3.2 L rest of labs pending awake/alert lying in bed no acute distress Assessment: 01/19/17 11:41 withdrawal sx Plan: continue detox increase fluids continue ABX f/u pending labs
--- NOTE | 2017-01-19 14:17 | EKG ---
Test Reason : Blood Pressure : / mmHG Vent. Rate : 100 BPM Atrial Rate : 100 BPM P-R Int : 120 ms QRS Dur : 086 ms QT Int : 422 ms P-R-T Axes : 040 036 047 degrees QTc Int : 544 ms SINUS RHYTHM WITH PREMATURE ATRIAL COMPLEXES BIATRIAL ENLARGEMENT PROLONGED QT ABNORMAL ECG WHEN COMPARED WITH ECG OF 28-JUL-2016 13:39, PREMATURE ATRIAL COMPLEXES ARE NOW PRESENT NONSPECIFIC ST ABNORMALITY T WAVE AMPLITUDE HAS DECREASED IN LATERAL LEADS QT HAS LENGTHENED REPEAT EKG IF CLINICALLY INDICATED Confirmed by DIYA SOMMER MD ([id number]) on 01/19/2017 2:17:31 PM Referred By: Dirk Person Confirmed By:DIYA SOMMER MD
[2017-01-19 14:27] VITALS: PULSE 96
[2017-01-19] MEDS: POTASSIUM CHLORIDE ORAL LIQUID 20 MEQ/15 ML PO SCH ×2 (14:35→17:32)
--- NOTE | 2017-01-19 15:02 | CONSULT ---
[facility] Psychiatric Consult - Data Date of interview: 01/19/17 Admission source: [facility] Identifying data: Readmisssion to [facility] for this 51 y/o female seeking detox treatment on for alcohol dependence.Patient is , a mother of one,domiciled,unemployed and supported on Public Assistance funds. Substance Abuse History: Patient confirms this pattern of substance abuse in my interview : Smoking Cessation. Smoking history: Current every day smoker. Have you smoked in the past 12 months: Yes. Aproximately how many cigarettes per day: 20. Cigars Per Day: 0. Hx Chewing Tobacco Use: No. Initiated information on smoking cessation: Yes. 'Breaking Loose' booklet given: . - Substance & Tx. History. Hx Alcohol Use: Yes. Hx Substance Use: No. Substance Use Type: Alcohol. Hx Substance Use Treatment: Yes ([facility] 07/28/16 TO 07/31/16). - Substances Abused. Alcohol. Route: Oral. Frequency: Daily. Amount used: 6pk beer/ 3 shots vodka or rum. Age of first use: 19. Date of Last Use: 01/18/17 Medical History: Remarkable for hypertension and a history of cerebrovascular accident (2006). Psychiatric History: Patient denies. Physical/Sexual Abuse/Trauma History: Patient denies. Additional Comment: Drug Screen is negative. Mental Status Exam - Mental Status Exam Alert and Oriented to: Time, Place, Person Cognitive Function: Grossly Intact Patient Appearance: Unkempt, Disheveled (thin habitus,frail-looking) Mood: Nervous, Withdrawn, Anxious, Irritable Affect: Mood Congruent Patient Behavior: Fatigued, Cooperative (marginally) Speech Pattern: Clear, Appropriate Voice Loudness: Normal Thought Process: Goal Oriented Thought Disorder: Not Present Hallucinations: Denies Suicidal Ideation: Denies Homicidal Ideation: Denies Insight/Judgement: Poor Sleep: Poorly, Difficulty falling asleep Appetite: Good Muscle strength/Tone: Normal (no complaint offered) Gait/Station: Normal Psychiatric Findings - Problem List ([place] 1, 2,3) (1) Alcohol dependence with uncomplicated withdrawal Current Visit: Yes Status: Acute (2) Alcohol-induced mood disorder Current Visit: Yes Status: Acute (3) Nicotine dependence Current Visit: Yes Status: Acute (4) H/O recurrent urinary tract infection Current Visit: Yes Status: Acute (5) History of hypertension Current Visit: Yes Status: Acute (6) Insomnia Current Visit: Yes Status: Acute - Initial Treatment Plan Initial Treatment Plan: Psychoeducation.Detoxification.Ambien 5mg po hs prn.Risk of parasomnias discussed with the patient.She agrees to follow this careplan.Observation.
[2017-01-19] MEDS ORDERED: ZOLPIDEM TARTRATE 5 MG TABLET PO PRN ×2 (15:15→22:00)
[2017-01-19] MEDS: NICOTINE 21 MG/24 HOURS TOPICAL PATCH TD SCH (15:42)
--- NOTE | 2017-01-19 15:57 | PN ---
[facility] Progress Note Note: pt continues with low grade temp; last temp 102. pt also had a potassium of 2.2. an order of KCL q4hrs x 3 doses ordered. pt did receive first dose. report given to Dr. Smith for evaluation at [facility].
[2017-01-19 18:04] VITALS: BP 128/81; TEMP 102.4
[2017-01-19] MEDS ORDERED: chlordiazePOXIDE HCL 25 MG CAPSULE PO SCH (23:00)
[2017-01-20] MEDS ORDERED: chlordiazePOXIDE 5 MG CAPSULE PO SCH (23:00)
[2017-01-21] MEDS ORDERED: chlordiazePOXIDE HCL 10 MG CAPSULE PO SCH (23:00)
== END 2017-01-19 21:59 | disposition short-term general hospital (02) | DRG 775 ==
LOC: YASAS 14:49 → Y6N 17:47
PROVIDERS: ADMIT Internal Medicine; ATTEND Surgery
PROC: HZ2ZZZZ Detoxification Services for Substance Abuse Treatment (ICD-10-PCS; principal; 2017-01-19)
DX: F10.230 Alcohol dependence with withdrawal, uncomplicated (principal); F17.210 Nicotine dependence, cigarettes, uncomplicated; F10.24 Alcohol dependence with alcohol-induced mood disorder; F41.8 Other specified anxiety disorders; G47.00 Insomnia, unspecified; I10 Essential (primary) hypertension; Z86.73 Personal history of transient ischemic attack (TIA), and cerebral infarction without residual deficits; Z87.440 Personal history of urinary (tract) infections
CPT/HCPCS: 36415; 80053; 85027; 86593; 87086; 93005; 93010

== ENCOUNTER 2017-01-19 16:57 | Inpatient (IN) | payer BC ==
--- NOTE | 2017-01-19 17:11 | PDOC ---
History of Present Illness - General History Source: Patient Exam Limitations: No Limitations - History of Present Illness Initial Comments: CHIEF COMPLAINT: 51 y/o febrile female sent in from [facility] detox for fever and abnormal labs. HISTORY OF PRESENT ILLNESS: The patient was admitted to [facility] yesterday for alcohol detox. She was found to have a fever today and had very abnormal labs with potassium of 2.2 so she was sent here for further evaluation and treatment. The patient denies earache, cough, sore throat, n/v/d, CP, SOB, abd pain, back pain, hematuria, dysuria. The patient does have a history of recurrent UTIs. She has been through detox before and has stayed sober for as long as 2 years. Her last time in detox was July,. Vital signs on arrival are notable for fever of 101.6. REVIEW OF SYSTEMS: GENERAL/CONSTITUTIONAL: +fever. No weakness. No weight change. HEAD, EYES, EARS, NOSE AND THROAT: No change in vision. No ear pain or discharge. No sore throat. CARDIOVASCULAR: No chest pain or shortness of breath. RESPIRATORY: No cough, wheezing, or hemoptysis. GASTROINTESTINAL: No abd pain, nausea, vomiting, diarrhea. GENITOURINARY: No dysuria, frequency, or change in urination. MUSCULOSKELETAL: No joint or muscle swelling or pain. No neck or back pain. SKIN: No rash or easy bruising. NEUROLOGIC: No headache, vertigo, loss of consciousness, or loss of sensation. PHYSICAL EXAM: GENERAL: The patient is sleeping with arousal to verbal stimuli. She answers questions with her eyes closed. HEAD: Normal with no signs of trauma. ENT: Pupils equal, round and reactive to light, extraocular movements intact, sclera anicteric, conjunctiva clear. Mucous membranes mildly dry. LUNGS: Clear to auscultation bilaterally. Normal excursion. No respiratory distress or use of accessory muscles. CV: RRR, S1/S2, no MRG. Cap refill < 2 sec. ABDOMEN: Soft, non-distended, non-tender even to deep palpation, no hepatomegaly or splenomegaly, no masses. EXTREMITIES: Normal range of motion, no edema. NEUROLOGICAL: Normal speech, normal gait. CN II-XII grossly intact. PSYCH: Normal mood, normal affect. SKIN: Warm, dry, normal turgor, no rashes or lesions noted. <Neha Almeida - Last Filed: 01/19/17 18:48> <Sara Thomson - Last Filed: 01/19/17 20:14> - General Chief Complaint: SIRS, Suspected/Possible Stated Complaint: FEVER Time Seen by Provider: 01/19/17 17:07 Past History - Past Medical History Anemia: No Asthma: No Cancer: No Cardiac Disorders: No CVA: Yes (OLD CVA IN 2006) COPD: No CHF: No Dementia: No Diabetes: No GI Disorders: No Disorders: No HTN: Yes (not taking any meds) Kidney Stones: No Liver Disease: No Suicide Attempt (Hx): No (denies) Seizures: No - Reproductive History PID: No - Immunization History Immunization Up to Date: Yes - Psycho/Social/Smoking Cessation Hx Anxiety: Yes Suicidal Ideation: No Smoking History: Former smoker Have you smoked in the past 12 months: Yes Number of Cigarettes Smoked Daily: 20 Cigars Per Day: 0 Information on smoking cessation initiated: No 'Breaking Loose' booklet given: 01/18/17 Hx Alcohol Use: Yes Drug/Substance Use Hx: No Substance Use Type: Alcohol Hx Substance Use Treatment: Yes ([facility] 07/28/16 TO 07/31/16) <Neha Almeida - Last Filed: 01/19/17 18:48> <Sara Thomson - Last Filed: 01/19/17 20:14> - Past Medical History Allergies/Adverse Reactions: Allergies Allergy/AdvReac Type Severity Reaction Status Date / Time No Known Allergies Allergy Verified 01/18/17 17:36 Home Medications: Ambulatory Orders NK [No Known Home Medication] 01/18/17 *Physical Exam - Vital Signs Last Vital Signs Temp Pulse Resp BP Pulse Ox 101.6 F H 87 20 127/74 98 01/19/17 17:01 01/19/17 17:01 01/19/17 17:01 01/19/17 17:01 01/19/17 17:05 <Neha Almeida - Last Filed: 01/19/17 18:48> - Vital Signs Last Vital Signs Temp Pulse Resp BP Pulse Ox 101.6 F H 87 20 127/74 98 01/19/17 17:01 01/19/17 17:01 01/19/17 17:01 01/19/17 17:01 01/19/17 17:05 <Sara Thomson - Last Filed: 01/19/17 20:14> Heart Score/ECG Review - ECG Intrepretation Comment:: Twelve-lead EKG was performed and reviewed by Dr. Thomson. There is normal sinus rhythm with a normal rate. The axis is normal. The intervals are normal. There are no ST or T wave abnormalities. Impression: Normal twelve-lead EKG <Neha Almeida - Last Filed: 01/19/17 18:48> ED Treatment Course - LABORATORY CBC & Chemistry Diagram: 01/19/17 17:29 01/19/17 17:29 <Neha Almeida - Last Filed: 01/19/17 18:48> - LABORATORY CBC & Chemistry Diagram: 01/19/17 17:29 01/19/17 17:29 - ADDITIONAL ORDERS Additional order review: Laboratory Results 01/19/17 01/19/17 01/19/17 18:30 17:29 17:29 Sodium 130 L Potassium 3.5 D Chloride 91 L Carbon Dioxide 28 Anion Gap 11 BUN 15 D Creatinine 0.6 Creat Clearance w eGFR > 60 Random Glucose 136 H D Lactic Acid 2.7 H* Calcium 8.6 Total Bilirubin 2.1 H D AST 65 H ALT 35 Alkaline Phosphatase 137 H Creatine Kinase 69 Troponin I < 0.02 Total Protein 7.2 Albumin 2.9 L Urine Color Eliana Urine Appearance Clear Urine pH 5.0 D Urine Protein 1+ H Urine Glucose (UA) Negative Urine Ketones Negative Urine Blood 2+ H Urine Nitrite Negative Urine Bilirubin Negative Urine Urobilinogen 4.0 e.u/dl H Ur Leukocyte Esterase 2+ H Urine RBC 13 Urine WBC 99 Ur Epithelial Cells Rare Urine Bacteria Rare Hyaline Casts 14 Urine Mucus Few 01/19/17 17:29 RBC 3.88 MCV 104.8 H MCHC 34.2 RDW 13.1 MPV 10.3 Neutrophils % 78.5 D Lymphocytes % 6.6 L D Monocytes % 14.4 H Eosinophils % 0.0 D Basophils % 0.5 - Medications Given in the ED: ED Medications Discontinued Medications Generic Name Dose Route Start Last Admin Trade Name Freq PRN Reason Stop Dose Admin Sodium Chloride 1,000 mls @ 1,000 mls/hr 01/19/17 18:52 01/19/17 18:58 Normal Saline - IV 01/19/17 19:51 1,000 mls/hr ASDIR STA Administration Ibuprofen 800 mg 01/19/17 17:36 01/19/17 17:37 Caldolor Injection - IVPB 01/19/17 17:37 800 mg ONCE ONE Administration <Sara Thomson - Last Filed: 01/19/17 20:14> Medical Decision Making - Medical Decision Making A/P: 51 y/o febrile female sent over from [facility] with fever and abnormal labs. Plan is as follows: 1. EKG 2. CXR 3. Labs 4. UA/culture 5. IV caldolor 6. IV fluids CXR IMPRESSION: No evidence of active lung disease. EKG normal I am signing this patient out to my colleague: BOB Thomson In brief, this patient is being seen in the ED for a chief complaint of: fever and abnormal labs I have completed the initial assessment interview note and have ordered: labs, UA, CXR, EKG I have reviewed the following results: all except UA Pending results are: UA Plan for disposition is as follows: Pending <Neha Almeida - Last Filed: 01/19/17 18:48> *DC/Admit/Observation/Transfer <Neha Almeida - Last Filed: 01/19/17 18:48> - Discharge Dispostion Admit: Yes <Sara Thomson - Last Filed: 01/19/17 20:14> Diagnosis at time of Disposition: Systemic inflammatory response syndrome (SIRS), UTI (urinary tract infection) Fever Qualifiers: Fever type: unspecified Qualified Code(s): R50.9 - Fever, unspecified
[2017-01-19] MEDS ORDERED: IBUPROFEN 800 MG/8 ML IJ IVPB ONE ×2 (17:36→17:43)
[2017-01-19 18:04] LABS: BASOPHIL 0.5 % (0-2.0); MCH 35.9 pg (25.7-33.7); MCHC 34.2 g/dl (32.0-36.0); MEAN CELL VOLUME 104.8 fl (80-96); MEAN PLT VOLUME 10.3 fl (7.5-11.1); NEUTROPHILS 78.5 % (42.8-82.8); PLATELET COUNT 118 K/MM3 (134-434); RDW 13.1 % (11.6-15.6); WHITE BLOOD COUNT 10.8 K/mm3 (4.0-10.0)
[2017-01-19 18:34] LABS: ALBUMIN 2.9 g/dl (3.4-5.0); ANION GAP 11 (8-16); CALCIUM 8.6 mg/dL (8.5-10.1); CO2 28 mmol/L (21-32); CREATININE 0.6 mg/dL (0.55-1.02); GLUCOSE,RANDOM 136 mg/dL (74-106); SGPT/ALT 35 U/L (12-78)
[2017-01-19 18:38] LABS: ALK PHOS 137 U/L (45-117); BILIRUBIN,TOTAL 2.1 mg/dL (0.2-1.0); CPK 69 IU/L (26-192); TOT PROT 7.2 g/dl (6.4-8.2); TROPONIN I < 0.02 ng/ml (0.00-0.05)
[2017-01-19 18:42] LABS: SGOT/AST 65 U/L (15-37)
[2017-01-19] MEDS ORDERED: SODIUM CHLORIDE 1,000 ML IV STA ×3 (18:52→20:50)
[2017-01-19 19:19] LABS: URINE APPEARANCE CLEAR; URINE BILIRUBIN NEGATIVE (NEGATIVE); URINE BLOOD 2+ (NEGATIVE); URINE COLOR AMBER; URINE GLUCOSE (UA) NEGATIVE (NEGATIVE); URINE KETONE NEGATIVE (NEGATIVE); URINE NITRITE NEGATIVE (NEGATIVE); URINE UROBILINOGEN 4.0 E.U/dl mg/dL (0.2-1.0)
--- NOTE | 2017-01-19 19:19 | PDOC ---
*Physical Exam - Vital Signs Last Vital Signs Temp Pulse Resp BP Pulse Ox 101.6 F H 87 20 127/74 98 01/19/17 17:01 01/19/17 17:01 01/19/17 17:01 01/19/17 17:01 01/19/17 17:05 - Physical Exam General Appearance: Yes: Appropriately Dressed Respiratory/Chest: positive: Lungs Clear, Normal Breath Sounds Cardiovascular: positive: Regular Rhythm, Regular Rate ED Treatment Course - LABORATORY CBC & Chemistry Diagram: 01/19/17 17:29 01/19/17 17:29 - ADDITIONAL ORDERS Additional order review: Laboratory Results 01/19/17 17:29 Sodium 130 L Potassium 3.5 D Chloride 91 L Carbon Dioxide 28 Anion Gap 11 BUN 15 D Creatinine 0.6 Creat Clearance w eGFR > 60 Random Glucose 136 H D Calcium 8.6 Total Bilirubin 2.1 H D AST 65 H ALT 35 Alkaline Phosphatase 137 H Creatine Kinase 69 Troponin I < 0.02 Total Protein 7.2 Albumin 2.9 L 01/19/17 17:29 RBC 3.88 MCV 104.8 H MCHC 34.2 RDW 13.1 MPV 10.3 Neutrophils % 78.5 D Lymphocytes % 6.6 L D Monocytes % 14.4 H Eosinophils % 0.0 D Basophils % 0.5 - Medications Given in the ED: ED Medications Discontinued Medications Generic Name Dose Route Start Last Admin Trade Name Freq PRN Reason Stop Dose Admin Ibuprofen 800 mg 01/19/17 17:36 01/19/17 17:37 Caldolor Injection - IVPB 01/19/17 17:37 800 mg ONCE ONE Administration Medical Decision Making - Medical Decision Making 01/19/17 20:01 urosepsis: P: ceftrixone, admit for IV antibiotics. repeat lactic acid 01/19/17 20:15 patient signed out to Dwayne Yarbrough resident/ Dr. gonzales *DC/Admit/Observation/Transfer Diagnosis at time of Disposition: Systemic inflammatory response syndrome (SIRS), UTI (urinary tract infection) Fever Qualifiers: Fever type: unspecified Qualified Code(s): R50.9 - Fever, unspecified
[2017-01-19 19:20] LABS: URINE LEUK ESTERASE 2+ (NEGATIVE); URINE PROTEIN 1+ (NEGATIVE)
[2017-01-19 19:48] LABS: URINE BACTERIA RARE /hpf (NONE SEEN); URINE HYALINE CAST 14 /lpf; URINE MUCUS FEW; URINE RBC 13 /hpf (0-3); URINE WBC 99 /hpf (3-5)
[2017-01-19] MEDS ORDERED: CEFTRIAXONE 1 GM in DEXTROSE 5%-WATER - 100 ML IVPB ONE (20:15)
[2017-01-19] MEDS ORDERED: CEFTRIAXONE 50 ML ONE (20:20)
--- NOTE | 2017-01-19 21:16 | HP ---
CHIEF COMPLAINT: I had fever PCP: Non-staff HISTORY OF PRESENT ILLNESS: 51 yo F h/o HTN, recurrent UTI and alcohol dependence on detox at [facility] presented to the ED with persistent fevers since x 2 days. Patient stated that she started alcohol detox at [facility] 1 week ago (last Wednesday). On Wednesday, she started having headache with intermittent non-productive cough associated with fevers Tmax 102F. She denies chest pain, shortness of breath, n/v, urinary or bowel symptoms. ER course was notable for: (1) Received ceftriaxone (2) 1L bolus x 3 (3) Fever 101.6 on ED admission Recent Travel: Denies PAST MEDICAL HISTORY: HTN, recurrent UTI PAST SURGICAL HISTORY: Rectal cyst Social History: Smokin cig/day x 30 years Alcohol: 6 cans of beer x "months" Drugs: Denies Umemployed, lives in apt Family History: Parents have HTN Allergies No Known Allergies Allergy (Verified 01/18/17 17:36) HOME MEDICATIONS: Home Medications Medication Instructions Recorded NK [No Known Home Medication] 01/18/17 REVIEW OF SYSTEMS CONSTITUTIONAL: fever, chills, Absent: diaphoresis, generalized weakness, malaise, loss of appetite, weight change HEENT: Absent: rhinorrhea, nasal congestion, throat pain, throat swelling, difficulty swallowing, mouth swelling, ear pain, eye pain, visual changes CARDIOVASCULAR: Absent: chest pain, syncope, palpitations, irregular heart rate, lightheadedness , peripheral edema RESPIRATORY: Absent: cough, shortness of breath, dyspnea with exertion, orthopnea, wheezing, stridor, hemoptysis GASTROINTESTINAL: Absent: abdominal pain, abdominal distension, nausea, vomiting, diarrhea, constipation, melena, hematochezia GENITOURINARY: Absent: dysuria, frequency, urgency, hesitancy, hematuria, flank pain, genital pain MUSCULOSKELETAL: Absent: myalgia, arthralgia, joint swelling, back pain, neck pain SKIN: Absent: rash, itching, pallor HEMATOLOGIC/IMMUNOLOGIC: Absent: easy bleeding, easy bruising, lymphadenopathy, frequent infections ENDOCRINE: Absent: unexplained weight gain, unexplained weight loss, heat intolerance, cold intolerance NEUROLOGIC: Absent: headache, focal weakness or paresthesias, dizziness, unsteady gait, seizure, mental status changes, bladder or bowel incontinence PSYCHIATRIC: anxiety, Absent: depression, suicidal or homicidal ideation, hallucinations. PHYSICAL EXAMINATION Last Vital Signs Temp Pulse Resp BP Pulse Ox 99.8 F H 63 20 100/63 98 01/19/17 20:49 01/19/17 20:49 01/19/17 20:49 01/19/17 20:49 01/19/17 17:05 GENERAL: AAO x 3, laying in bed in position, in no cardiopulmonary distress EYES: Pupils equal, round and reactive to light, sclera anicteric, conjunctiva clear. White/yellow discharge b/l eyes EARS, NOSE, THROAT: Ears normal, nares patent, oropharynx clear without exudates. Moist mucous membranes. NECK: NO JVD/mass LUNGS: CTAB HEART: RRR, normal S1 and S2 without murmur, rub or gallop. ABDOMEN: Soft, nontender, not distended, normoactive bowel sounds, no guarding, no rebound, no masses. MUSCULOSKELETAL: No CVA tenderness. EXTREMITIES: 2+ pulses, warm, well-perfused. SKIN: Warm, dry, normal turgor, no rashes or lesions noted, normal capillary refill. CBCD WBC 10.8 K/mm3 (4.0-10.0) H 01/19/17 17: RBC 3.88 M/mm3 (3.60-5.2) 01/19/17 17: Hgb 13.9 GM/dL (10.7-15.3) 01/19/17 17: Hct 40.7 % (32.4-45.2) 01/19/17 17: MCV 104.8 fl (80-96) H 01/19/17 17: MCHC 34.2 g/dl (32.0-36.0) 01/19/17 17: RDW 13.1 % (11.6-15.6) 01/19/17: Plt Count 118 K/MM3 (134-434) L 01/19/17 17: MPV 10.3 fl (7.5-11.1) 01/19/17 17: CMP Sodium 130 mmol/L (136-145) L 01/19/17 17: Potassium 3.5 mmol/L (3.5-5.1) D 01/19/17: Chloride 91 mmol/L (98-107) L 01/19/17 17:29 Carbon Dioxide 28 mmol/L (21-32) 01/19/17 17:29 Anion Gap 11 (8-16) 01/19/17 17:29 BUN 15 mg/dL (7-18) D 01/19/17 17:29 Creatinine 0.6 mg/dL (0.55-1.02) 01/19/17 17:29 Creat Clearance w eGFR > 60 (>60) 01/19/17 17:29 Calcium 8.6 mg/dL (8.5-10.1) 01/19/17 17:29 Total Bilirubin 2.1 mg/dL (0.2-1.0) H D 01/19/17 17:29 AST 65 U/L (15-37) H 01/19/17 17:29 ALT 35 U/L (12-78) 01/19/17 17:29 Alkaline Phosphatase 137 U/L (45-117) H 01/19/17 17:29 Total Protein 7.2 g/dl (6.4-8.2) 01/19/17 17:29 Albumin 2.9 g/dl (3.4-5.0) L 01/19/17 17:29 Intake & Output 01/16/17 01/17/17 01/18/17 01/19/17 23:59 23:59 23:59 23:59 Weight 65.317 kg Urine Test Results Urine Color Eliana 01/19/17 18:30 Urine Appearance Clear 01/19/17 18:30 Urine pH 5.0 (5.0-8.0) D 01/19/17 18:30 Urine Protein 1+ (NEGATIVE) H 01/19/17 18:30 Urine Glucose (UA) Negative (NEGATIVE) 01/19/17 18:30 Urine Ketones Negative (NEGATIVE) 01/19/17 18:30 Urine Blood 2+ (NEGATIVE) H 01/19/17 18:30 Urine Nitrite Negative (NEGATIVE) 01/19/17 18:30 Urine Bilirubin Negative (NEGATIVE) 01/19/17 18:30 Ur Leukocyte Esterase 2+ (NEGATIVE) H 01/19/17 18:30 Urine RBC 13 /hpf (0-3) 01/19/17 18:30 Urine WBC 99 /hpf (3-5) 01/19/17 18:30 Ur Epithelial Cells Rare /hpf (FEW) 01/19/17 18:30 Urine Bacteria Rare /hpf (NONE SEEN) 01/19/17 18:30 Urine Mucus Few 01/19/17 18:30 IMAGING CXR on 01/19: No acute pathology ASSESSMENT/PLAN: 51 yo F h/o HTN, recurrent UTI and alcohol dependence on detox at [facility] admitted to med-surg for severe sepsis. Severe sepsis - 2/2 UTI - IV bolus x 3L - Ceftriaxone 1g daily - Trend lactate Alcohol dependence - Cont. librium taper - Watch for withdrawal - PO thiamine and folic acid Tobacco use - On nicoderm FEN - IV bolus x 3L - Monitor Na+ and K+ - Regular diet Prophylaxis - DVT: heparin SQ - GI: not indicated Dispo - Admit to med-surg Visit type - Emergency Visit Emergency Visit: Yes ED Registration Date: 01/19/17 Care time: The patient presented to the Emergency Department on the above date and was hospitalized for further evaluation of their emergent condition. - New Patient This patient is new to me today: Yes Date on this admission: 01/19/17 - Critical Care Critical Care patient: No
--- NOTE | 2017-01-19 22:14 | PN ---
Teaching Attending Note Name of Resident: Dwayne Zhong ATTENDING PHYSICIAN STATEMENT I saw and evaluated the patient. I reviewed the resident's note and discussed the case with the resident. I agree with the resident's findings and plan as documented. SUBJECTIVE: 51 F with pmhx of etoh abuse who was recently admitted for etoh detox. States she had a fever today and was sent to ED for further eval. Notes she has a prior hx. of recurrent UTIs. In Ed she was found to be febrile to 101.6. OBJECTIVE: Physical: VS: Vital Signs Period Temp Pulse Resp BP Sys/Irvin Pulse Ox Last 24 Hr 99.8 F-101.6 F 63-87 20-20 100-127/63-74 98-98 GEN: Female in bed, NAD, able to speak full sentences HEENT: NCAT, PERRL, Throat without exudates CARD: RRR S1, S2 RESP: CTAB ABD:BSX4, ntd to palpation EXT: - C/C/E CBCD WBC 10.8 K/mm3 (4.0-10.0) H 01/19/17 17:29 RBC 3.88 M/mm3 (3.60-5.2) 01/19/17 17:29 Hgb 13.9 GM/dL (10.7-15.3) 01/19/17 17:29 Hct 40.7 % (32.4-45.2) 01/19/17 17:29 MCV 104.8 fl (80-96) H 01/19/17 17:29 MCHC 34.2 g/dl (32.0-36.0) 01/19/17 17:29 RDW 13.1 % (11.6-15.6) 01/19/17 17:29 Plt Count 118 K/MM3 (134-434) L 01/19/17 17:29 MPV 10.3 fl (7.5-11.1) 01/19/17 17:29 CMP Sodium 130 mmol/L (136-145) L 01/19/17 17:29 Potassium 3.5 mmol/L (3.5-5.1) D 01/19/17 17:29 Chloride 91 mmol/L (98-107) L 01/19/17 17:29 Carbon Dioxide 28 mmol/L (21-32) 01/19/17 17:29 Anion Gap 11 (8-16) 01/19/17 17:29 BUN 15 mg/dL (7-18) D 01/19/17 17:29 Creatinine 0.6 mg/dL (0.55-1.02) 01/19/17 17:29 Creat Clearance w eGFR > 60 (>60) 01/19/17 17:29 Random Glucose 136 mg/dL (74-106) H D 01/19/17 17:29 Calcium 8.6 mg/dL (8.5-10.1) 01/19/17 17:29 Total Bilirubin 2.1 mg/dL (0.2-1.0) H D 01/19/17 17:29 AST 65 U/L (15-37) H 01/19/17 17:29 ALT 35 U/L (12-78) 01/19/17 17:29 Alkaline Phosphatase 137 U/L (45-117) H 01/19/17 17:29 Total Protein 7.2 g/dl (6.4-8.2) 01/19/17 17:29 Albumin 2.9 g/dl (3.4-5.0) L 01/19/17 17:29 CARDIAC ENZYMES Creatine Kinase 69 IU/L (26-192) 01/19/17 17:29 Troponin I < 0.02 ng/ml (0.00-0.05) 01/19/17 17:29 Urine Test Results Urine Color Eliana 01/19/17 18:30 Urine Appearance Clear 01/19/17 18:30 Urine pH 5.0 (5.0-8.0) D 01/19/17 18:30 Urine Protein 1+ (NEGATIVE) H 01/19/17 18:30 Urine Glucose (UA) Negative (NEGATIVE) 01/19/17 18:30 Urine Ketones Negative (NEGATIVE) 01/19/17 18:30 Urine Blood 2+ (NEGATIVE) H 01/19/17 18:30 Urine Nitrite Negative (NEGATIVE) 01/19/17 18:30 Urine Bilirubin Negative (NEGATIVE) 01/19/17 18:30 Ur Leukocyte Esterase 2+ (NEGATIVE) H 01/19/17 18:30 Urine RBC 13 /hpf (0-3) 01/19/17 18:30 Urine WBC 99 /hpf (3-5) 01/19/17 18:30 Ur Epithelial Cells Rare /hpf (FEW) 01/19/17 18:30 Urine Bacteria Rare /hpf (NONE SEEN) 01/19/17 18:30 Urine Mucus Few 01/19/17 18:30 Ambulatory Orders NK [No Known Home Medication] 01/18/17 ASSESSMENT AND PLAN: 51 F with pmhx of etoh abuse who presents with fever, found to be septic 1.) Severe Sepsis - Secondary to UTI - Mariee Cx - C/W Ceftriaxone - Repeat LA 2.) Etoh abuse - C/W librium - Thiamine/folic a - Detox consult 3.) Dvt Ppx - Mod. Risk- Heparin [address] in Med- Sx
[2017-01-19] MEDS: HEPARIN NA (PORCINE) 5,000 UNITS/ML 1ML VIAL SQ SCH (22:52)
[2017-01-19] MEDS: chlordiazePOXIDE HCL 25 MG CAPSULE PO SCH (22:52)
[2017-01-19] MEDS: NICOTINE 21 MG/24 HOURS TOPICAL PATCH TD SCH (22:53)
[2017-01-20] MEDS: chlordiazePOXIDE HCL 25 MG CAPSULE PO SCH ×3 (00:32→12:03)
[2017-01-20] MEDS: HEPARIN NA (PORCINE) 5,000 UNITS/ML 1ML VIAL SQ SCH ×2 (06:37→15:17)
[2017-01-20] MEDS: ACETAMINOPHEN 325 MG TABLET (FP) PO PRN ×2 (06:37→15:05)
[2017-01-20 06:59] VITALS: BMI 23.6
[2017-01-20 07:35] LABS: EOSINOPHIL 0.1 % (0-4.5); MCH 36.4 pg (25.7-33.7); MCHC 34.7 g/dl (32.0-36.0); MEAN CELL VOLUME 104.9 fl (80-96); MEAN PLT VOLUME 10.1 fl (7.5-11.1); NEUTROPHILS 74.8 % (42.8-82.8); PLATELET COUNT 100 K/MM3 (134-434); RDW 13.1 % (11.6-15.6); WHITE BLOOD COUNT 9.4 K/mm3 (4.0-10.0)
[2017-01-20 07:47] LABS: INR 1.81 (0.82-1.09); PROTHROMBIN TIME (PATIENT) 20.2 SEC (9.98-11.88)
[2017-01-20 07:50] LABS: ACTIVATED PTT 31.6 SECONDS (26.9-34.4)
[2017-01-20 07:52] LABS: ALBUMIN 2.6 g/dl (3.4-5.0); ANION GAP 9 (8-16); CALCIUM 7.5 mg/dL (8.5-10.1); CO2 26 mmol/L (21-32); GLUCOSE,RANDOM 94 mg/dL (74-106)
[2017-01-20 07:56] LABS: ALK PHOS 125 U/L (45-117); BILIRUBIN,TOTAL 2.2 mg/dL (0.2-1.0); CREATININE 0.4 mg/dL (0.55-1.02); SGPT/ALT 35 U/L (12-78); TOT PROT 6.3 g/dl (6.4-8.2)
[2017-01-20 08:27] LABS: SGOT/AST 84 U/L (15-37)
[2017-01-20] MEDS ORDERED: CEFTRIAXONE 2 GM in DEXTROSE 5%-WATER - 100 ML IVPB SCH (10:00)
[2017-01-20] MEDS ORDERED: FOLIC ACID 1 MG TABLET (FP) PO SCH (10:00)
[2017-01-20] MEDS ORDERED: CEFTRIAXONE 1 GM in DEXTROSE 5%-WATER - 50 ML IVPB SCH (10:00)
[2017-01-20] MEDS ORDERED: cefTRIAXone 1 GM/50 ML BAG (PRE-DOCKED) IVPB SCH (10:00)
[2017-01-20] MEDS ORDERED: THIAMINE HCL 100 MG TABLET (FP) PO SCH (10:00)
[2017-01-20] MEDS: cefTRIAXone 1 GM/50 ML BAG (PRE-DOCKED) IVPB SCH ×2 (12:04→15:09)
[2017-01-20] MEDS: NICOTINE 21 MG/24 HOURS TOPICAL PATCH TD SCH ×2 (12:09→15:18)
--- NOTE | 2017-01-20 13:21 | EKG ---
Test Reason : Blood Pressure : / mmHG Vent. Rate : 083 BPM Atrial Rate : 083 BPM P-R Int : 126 ms QRS Dur : 084 ms QT Int : 408 ms P-R-T Axes : 036 039 038 degrees QTc Int : 479 ms NORMAL SINUS RHYTHM POSSIBLE LEFT ATRIAL ENLARGEMENT BORDERLINE ECG WHEN COMPARED WITH ECG OF 18-JAN-2017 18:00, PREMATURE ATRIAL COMPLEXES ARE NO LONGER PRESENT QT HAS SHORTENED Confirmed by DESTINI VILLAVICENCIO, JACQUI ([id number]) on 01/20/2017 1:21:22 PM Referred By: Confirmed By:JACQUI GEORGES MD
[2017-01-20 15:09] VITALS: BP 148/82; PULSE 94; TEMP 103
--- NOTE | 2017-01-20 17:06 | PN ---
[facility] Progress Note (SOAP) Subjective: Pt. was sent to Med/Surg because of fever and electrolyte imbalance. She was admitted for alcohol detox & librium taper is in progress. Objective: 01/20/17 17:02 Vital Signs - 8 hr 01/20/17 01/20/17 10:10 15:07 Temperature 98.4 F 103 F H Pulse Rate 74 94 H Respiratory 20 20 Rate Blood Pressure 137/85 148/82 Laboratory Tests 01/19/17 01/19/17 01/19/17 17:29 17:29 17:29 WBC 10.8 H RBC 3.88 Hgb 13.9 Hct 40.7 MCV 104.8 H MCH 35.9 H MCHC 34.2 RDW 13.1 Plt Count 118 L MPV 10.3 Neutrophils % 78.5 D Lymphocytes % 6.6 L D Monocytes % 14.4 H Eosinophils % 0.0 D Basophils % 0.5 INR PTT (Actin FS) Sodium 130 L Potassium 3.5 D Chloride 91 L Carbon Dioxide 28 Anion Gap 11 BUN 15 D Creatinine 0.6 Creat Clearance w eGFR > 60 Random Glucose 136 H D Lactic Acid 2.7 H* Calcium 8.6 Total Bilirubin 2.1 H D AST 65 H ALT 35 Alkaline Phosphatase 137 H Creatine Kinase 69 Troponin I < 0.02 Total Protein 7.2 Albumin 2.9 L Urine Color Urine Appearance Urine pH Ur Specific [place] Urine Protein Urine Glucose (UA) Urine Ketones Urine Blood Urine Nitrite Urine Bilirubin Urine Urobilinogen Ur Leukocyte Esterase Urine RBC Urine WBC Ur Epithelial Cells Urine Bacteria Hyaline Casts Urine Mucus 01/19/17 01/19/17 01/20/17 18:30 21:45 06:40 WBC 9.4 RBC 3.65 Hgb 13.3 Hct 38.3 MCV 104.9 H MCH 36.4 H MCHC 34.7 RDW 13.1 Plt Count 100 L MPV 10.1 Neutrophils % 74.8 Lymphocytes % 9.8 D Monocytes % 14.3 H Eosinophils % 0.1 D Basophils % 1.0 INR PTT (Actin FS) Sodium Potassium Chloride Carbon Dioxide Anion Gap BUN Creatinine Creat Clearance w eGFR Random Glucose Lactic Acid 1.1 Calcium Total Bilirubin AST ALT Alkaline Phosphatase Creatine Kinase Troponin I Total Protein Albumin Urine Color Eliana Urine Appearance Clear Urine pH 5.0 D Ur Specific [place] 1.015 Urine Protein 1+ H Urine Glucose (UA) Negative Urine Ketones Negative Urine Blood 2+ H Urine Nitrite Negative Urine Bilirubin Negative Urine Urobilinogen 4.0 e.u/dl H Ur Leukocyte Esterase 2+ H Urine RBC 13 Urine WBC 99 Ur Epithelial Cells Rare Urine Bacteria Rare Hyaline Casts 14 Urine Mucus Few 01/20/17 01/20/17 06:40 06:40 WBC RBC Hgb Hct MCV MCH MCHC RDW Plt Count MPV Neutrophils % Lymphocytes % Monocytes % Eosinophils % Basophils % INR 1.81 H PTT (Actin FS) 31.6 Sodium 135 L Potassium 3.1 L Chloride 100 Carbon Dioxide 26 Anion Gap 9 BUN 8 D Creatinine 0.4 L D Creat Clearance w eGFR > 60 Random Glucose 94 D Lactic Acid Calcium 7.5 L Total Bilirubin 2.2 H AST 84 H D ALT 35 Alkaline Phosphatase 125 H Creatine Kinase Troponin I Total Protein 6.3 L Albumin 2.6 L Urine Color Urine Appearance Urine pH Ur Specific [place] Urine Protein Urine Glucose (UA) Urine Ketones Urine Blood Urine Nitrite Urine Bilirubin Urine Urobilinogen Ur Leukocyte Esterase Urine RBC Urine WBC Ur Epithelial Cells Urine Bacteria Hyaline Casts Urine Mucus Assessment: 01/20/17 17:03 Alcohol dependence SIRS Plan: Pt. refused to stay for IV antibiotic & signed out AMA
--- NOTE | 2017-01-20 17:21 | PN ---
Teaching Attending Note Name of Resident: Bailey Taylor ATTENDING PHYSICIAN STATEMENT I saw and evaluated the patient. I reviewed the resident's note and discussed the case with the resident. I agree with the resident's findings and plan as documented. SUBJECTIVE: OBJECTIVE: Vital Signs Period Temp Pulse Resp BP Sys/Irvin Pulse Ox Last 24 Hr 89.2 F-103 F 63-94 18-20 100-148/63-87 96-98 ASSESSMENT AND PLAN:
--- NOTE | 2017-01-20 18:01 | DS ---
Physical Exam: SUBJECTIVE: Patient seen and examined at bedside this AM. Pt was drowsy and did not respond when spoken to. Later in the day, pt stated that she no longer wanted to be in the hospital. She thought the antibiotics were "not doing anything" and she would rather be at her rehab facility. Risks of leaving were discussed with patient, however pt left AMA. OBJECTIVE: Vital Signs Period Temp Pulse Resp BP Sys/Irvin Pulse Ox Last 24 Hr 98.4 F-103 F 63-94 18-20 100-148/63-85 98 PHYSICAL EXAM GENERAL: The patient is drowsy, in no distress HEAD: Normal with no signs of trauma. EYES: PERRL, extraocular movements intact, sclera anicteric, conjunctiva clear. NECK: Trachea midline, full range of motion, supple. LUNGS: Breath sounds equal, clear to auscultation bilaterally, no wheezes, no crackles, no accessory muscle use. HEART: Regular rate and rhythm, S1, S2 without murmur, rub or gallop. ABDOMEN: Soft, nontender, nondistended, normoactive bowel sounds, no guarding, no rebound EXTREMITIES: 2+ posterior tibial pulses, warm, well-perfused, no edema. NEUROLOGICAL: Cranial nerves II through XII grossly intact. LABS Laboratory Results - last 24 hr 01/19/17 01/20/17 01/20/17 21:45 06:40 06:40 WBC 9.4 RBC 3.65 Hgb 13.3 Hct 38.3 MCV 104.9 H MCH 36.4 H MCHC 34.7 RDW 13.1 Plt Count 100 L MPV 10.1 Neutrophils % 74.8 Lymphocytes % 9.8 D Monocytes % 14.3 H Eosinophils % 0.1 D Basophils % 1.0 INR 1.81 H PTT (Actin FS) 31.6 Sodium Potassium Chloride Carbon Dioxide Anion Gap BUN Creatinine Creat Clearance w eGFR Random Glucose Lactic Acid 1.1 Calcium Total Bilirubin AST ALT Alkaline Phosphatase Total Protein Albumin 01/20/17 06:40 WBC RBC Hgb Hct MCV MCH MCHC RDW Plt Count MPV Neutrophils % Lymphocytes % Monocytes % Eosinophils % Basophils % INR PTT (Actin FS) Sodium 135 L Potassium 3.1 L Chloride 100 Carbon Dioxide 26 Anion Gap 9 BUN 8 D Creatinine 0.4 L D Creat Clearance w eGFR > 60 Random Glucose 94 D Lactic Acid Calcium 7.5 L Total Bilirubin 2.2 H AST 84 H D ALT 35 Alkaline Phosphatase 125 H Total Protein 6.3 L Albumin 2.6 L HOSPITAL COURSE: Date of Admission:01/19/17 Date of Discharge: 01/20/17 Admit diagnosis: severe sepsis secondary to UTI Pre-admission course 51 yo F h/o HTN, recurrent UTI and alcohol dependence on detox at [facility] presented to the ED with persistent fevers since x 2 days. Patient stated that she started alcohol detox at [facility] 1 week ago (last Wednesday). On Wednesday, she started having headache with intermittent non-productive cough associated with fevers Tmax 102F. She denies chest pain, shortness of breath, n/v, urinary or bowel symptoms. ER course was notable for: (1) Received ceftriaxone (2) 1L bolus x 3 (3) Fever 101.6 on ED admission Hospital course Pt was being treated for sepsis secondary to UTI on floor with rocephin 1g and Tylenol 650mg q4 PRN to control her fever. She was also started on librium protocol, Vit B1 and thiamine for alcohol dependence. However, pt left AMA later this afternoon. She stated that she wanted to go back to her rehab facility at [facility] and that the antibiotics were "not doing anything." I advised her on staying to avoid worsening of her condition and associated risks , but she declined and proceeded to walk out. Minutes to complete discharge: 32 Discharge Summary Reason For Visit: SIRS/UTI/FEVER Current Active Problems Alcohol dependence with uncomplicated withdrawal (Acute) Alcohol-induced mood disorder (Acute) Anxiety and depression (Acute) Fever (Acute) H/O recurrent urinary tract infection (Acute) History of hypertension (Acute) Insomnia (Acute) Nicotine dependence (Acute) Systemic inflammatory response syndrome (SIRS) (Acute) UTI (urinary tract infection) (Acute) - Instructions Disposition: AGAINST MEDICAL ADVICE - Home Medications Comprehensive Discharge Medication List: Ambulatory Orders NK [No Known Home Medication] 01/18/17 This patient is new to me today: Yes Date on this admission: 01/20/17 Emergency Visit: No Critical Care patient: No - Discharge Referral Referred to [facility] Med P.C.: No
[2017-01-20] MEDS ORDERED: chlordiazePOXIDE 5 MG CAPSULE PO SCH (23:00)
[2017-01-21] MEDS ORDERED: chlordiazePOXIDE 5 MG CAPSULE PO SCH (23:00)
== END 2017-01-20 15:57 | disposition left against medical advice (07) | DRG 720 ==
LOC: JER 16:57 → JERBED 20:48 → J5S 21:20
PROVIDERS: ADMIT Internal Medicine; ATTEND Internal Medicine
PROC: HZ2ZZZZ Detoxification Services for Substance Abuse Treatment (ICD-10-PCS; principal; 2017-01-19)
DX: A41.9 Sepsis, unspecified organism (principal); N39.0 Urinary tract infection, site not specified; I10 Essential (primary) hypertension; F17.210 Nicotine dependence, cigarettes, uncomplicated; E87.1 Hypo-osmolality and hyponatremia; F10.230 Alcohol dependence with withdrawal, uncomplicated; F41.8 Other specified anxiety disorders; R50.9 Fever, unspecified; F10.24 Alcohol dependence with alcohol-induced mood disorder; G47.09 Other insomnia; E87.6 Hypokalemia; Z86.73 Personal history of transient ischemic attack (TIA), and cerebral infarction without residual deficits
CPT/HCPCS: 36415; 71010-TC; 80053; 81003; 81015; 83605; 84484; 85025; 85610; 85730; 87040; 87086; 93005; 93010; 99285-25; J1644

== ENCOUNTER 2017-06-25 14:16 | Inpatient (IN) | payer BC ==
[2017-06-25 16:06] VITALS: BMI 26.1
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
[2017-06-25] MEDS ORDERED: ACETAMINOPHEN 325 MG TABLET (FP) PO PRN (17:49)
[2017-06-25] MEDS ORDERED: NICOTINE POLACRILEX 2 MG GUM BC PRN (17:49)
[2017-06-25] MEDS ORDERED: P-EPHED 60MG/TRIPROLIDI 2.5MG TABLET PO PRN (17:49)
[2017-06-25] MEDS ORDERED: MAG HYDROX/AL HYDROX/SIMETH 30 ML UNIT-DOSE CUP PO PRN (17:49)
[2017-06-25] MEDS ORDERED: LOPERAMIDE HCL 2 MG CAPSULE PO PRN (17:49)
[2017-06-25] MEDS ORDERED: MENTHOL/PHENOL 1 EACH UD MM PRN (17:49)
[2017-06-25] MEDS ORDERED: chlordiazePOXIDE HCL 25 MG CAPSULE PO PRN (17:49)
[2017-06-25] MEDS ORDERED: MAGNESIUM CITRATE 300 ML BOTTLE PO PRN (17:49)
[2017-06-25] MEDS ORDERED: hydrOXYzine PAMOATE 50 MG CAPSULE (FP) PO PRN (17:49)
[2017-06-25] MEDS ORDERED: IBUPROFEN 400 MG TABLET (FP) PO PRN (17:49)
[2017-06-25] MEDS ORDERED: MAGNESIUM HYDROX 2400MG/30ML ORAL SUSPENSION 30 ML CUP PO PRN (17:49)
[2017-06-25] MEDS ORDERED: guaiFENesin/D-METHORPHAN HB 10 ML UNIT-DOSE CUPS PO PRN (17:49)
[2017-06-25] MEDS ORDERED: chlordiazePOXIDE HCL 25 MG CAPSULE PO ONE ×2 (18:30→20:14)
[2017-06-25] MEDS: POTASSIUM CHLORIDE TABS 20 MEQ TABLET.ER (FP) PO SCH (20:54)
--- NOTE | 2017-06-25 22:11 | PN ---
[facility] Progress Note Note: EKG: A-FLUTTER W/ VARIABLE AV BLOCK; NEW ONSET. P. 121 AND RHYTHM IRREGULAR, BP : 150/85, R 16, T. 98.6. PT. C/O FATIGUE. PT. TO BE SENT TO THE ER FOR FURTHER EVALUATION. REPORT GIVEN TO DR. LEPE.
[2017-06-25] MEDS: chlordiazePOXIDE HCL 25 MG CAPSULE PO SCH (22:12)
[2017-06-25] MEDS: THIAMINE HCL 100 MG TABLET (FP) PO SCH (22:12)
[2017-06-25 23:28] LABS: URINE APPEARANCE CLEAR; URINE BILIRUBIN NEGATIVE (NEGATIVE); URINE BLOOD NEGATIVE (NEGATIVE); URINE COLOR STRAW; URINE GLUCOSE (UA) NEGATIVE (NEGATIVE); URINE KETONE NEGATIVE (NEGATIVE); URINE LEUK ESTERASE NEGATIVE (NEGATIVE); URINE NITRITE NEGATIVE (NEGATIVE); URINE PROTEIN NEGATIVE (NEGATIVE); URINE UROBILINOGEN NEGATIVE mg/dL (0.2-1.0)
[2017-06-26] MEDS: chlordiazePOXIDE HCL 25 MG CAPSULE PO SCH ×4 (05:49→22:33)
[2017-06-26] MEDS: NICOTINE 21 MG/24 HOURS TOPICAL PATCH TD SCH (10:36)
[2017-06-26] MEDS: POTASSIUM CHLORIDE TABS 20 MEQ TABLET.ER (FP) PO SCH ×2 (10:36→22:34)
[2017-06-26] MEDS: PRENATAL VITAMINS W/ FOLIC ACID TABLET (FP) PO SCH (10:36)
[2017-06-26 11:06] LABS: ALBUMIN 3.4 g/dl (3.4-5.0); ANION GAP 10 (8-16); BLOOD UREA NITROGEN 8 mg/dL (7-18); CHLORIDE 104 mmol/L (98-107); CO2 25 mmol/L (21-32); POTASSIUM 3.2 mmol/L (3.5-5.1); SODIUM 139 mmol/L (136-145)
[2017-06-26 11:07] LABS: HEMATOCRIT 41.4 % (32.4-45.2); HEMOGLOBIN 13.8 GM/dL (10.7-15.3); MCH 35.8 pg (25.7-33.7); MCHC 33.3 g/dl (32.0-36.0); MEAN CELL VOLUME 107.6 fl (80-96); MEAN PLT VOLUME 9.9 fl (7.5-11.1); PLATELET COUNT 118 K/MM3 (134-434); RBC 3.84 M/mm3 (3.60-5.2); RDW 13.3 % (11.6-15.6); WHITE BLOOD COUNT 5.3 K/mm3 (4.0-10.0)
[2017-06-26 11:11] LABS: ALK PHOS 230 U/L (45-117); BILIRUBIN,TOTAL 2.9 mg/dL (0.2-1.0); CREATININE 0.5 mg/dL (0.55-1.02); GLUCOSE,RANDOM 82 mg/dL (74-106); SGOT/AST 121 U/L (15-37); SGPT/ALT 57 U/L (12-78); TOT PROT 7.3 g/dl (6.4-8.2)
--- NOTE | 2017-06-26 12:14 | PN ---
S CIWA - CIWA Score Nausea/Vomitin Muscle Tremors: 3 Anxiety: 3 Agitation: 2 Paroxysmal Sweats: 1-Minimal Palms Moist Orientation: 0-Oriented Tacttile Disturbances: 1-Very Mild Itch/Numbness Auditory Disturbances: 1-Very Mild Visual Disturbances: 0-None Headache: 2-Mild CIWA-Ar Total Score: 16 B[facility] Progress Note (SOAP) Subjective: ALERT,IRRITABLE,TREMOR,MEDICALLY CLEAR TO RETURN TO [facility] ER FOR DETOX Objective: 06/26/17 12:11 Vital Signs Temperature 97.5 F L 06/26/17 10:19 Pulse Rate 77 06/26/17 10:19 Respiratory Rate 18 06/26/17 10:19 Blood Pressure 150/85 06/26/17 10:19 O2 Sat by Pulse Oximetry (%) Laboratory Last Values WBC 5.3 K/mm3 (4.0-10.0) 06/26/17 08:00 RBC 3.84 M/mm3 (3.60-5.2) 06/26/17 08:00 Hgb 13.8 GM/dL (10.7-15.3) 06/26/17 08:00 Hct 41.4 % (32.4-45.2) 06/26/17 08:00 MCV 107.6 fl (80-96) H 06/26/17 08:00 MCH 35.8 pg (25.7-33.7) H 06/26/17 08:00 MCHC 33.3 g/dl (32.0-36.0) 06/26/17 08:00 RDW 13.3 % (11.6-15.6) 06/26/17 08:00 Plt Count 118 K/MM3 (134-434) L 06/26/17 08:00 MPV 9.9 fl (7.5-11.1) 06/26/17 08:00 Sodium 139 mmol/L (136-145) 06/26/17 08:00 Potassium 3.2 mmol/L (3.5-5.1) L 06/26/17 08:00 Chloride 104 mmol/L (98-107) 06/26/17 08:00 Carbon Dioxide 25 mmol/L (21-32) 06/26/17 08:00 Anion Gap 10 (8-16) 06/26/17 08:00 BUN 8 mg/dL (7-18) 06/26/17 08:00 Creatinine 0.5 mg/dL (0.55-1.02) L D 06/26/17 08:00 Creat Clearance w eGFR > 60 (>60) 06/26/17 08:00 Random Glucose 82 mg/dL (74-106) 06/26/17 08:00 Calcium 8.0 mg/dL (8.5-10.1) L 06/26/17 08:00 Total Bilirubin 2.9 mg/dL (0.2-1.0) H D 06/26/17 08:00 AST 121 U/L (15-37) H 06/26/17 08:00 ALT 57 U/L (12-78) 06/26/17 08:00 Alkaline Phosphatase 230 U/L (45-117) H 06/26/17 08:00 Total Protein 7.3 g/dl (6.4-8.2) 06/26/17 08:00 Albumin 3.4 g/dl (3.4-5.0) 06/26/17 08:00 Urine Color Straw 06/25/17 20:09 Urine Appearance Clear 06/25/17 20:09 Urine pH 6.0 (5.0-8.0) 06/25/17 20:09 Ur Specific [place] 1.001 (1.001-1.035) 06/25/17 20:09 Urine Protein Negative (NEGATIVE) 06/25/17 20:09 Urine Glucose (UA) Negative (NEGATIVE) 06/25/17 20:09 Urine Ketones Negative (NEGATIVE) 06/25/17 20:09 Urine Blood Negative (NEGATIVE) 06/25/17 20:09 Urine Nitrite Negative (NEGATIVE) 06/25/17 20:09 Urine Bilirubin Negative (NEGATIVE) 06/25/17 20:09 Urine Urobilinogen Negative mg/dL (0.2-1.0) 06/25/17 20:09 Ur Leukocyte Esterase Negative (NEGATIVE) 06/25/17 20:09 HIV 1&2 Antibody Screen Negative 06/26/17 08:00 HIV P24 Antigen Negative 06/26/17 08:00 Assessment: 06/26/17 12:12 WITHDRAWAL SYMPTOM HYPOKALEMIA K IS 3.2 KDUR 20 MEQ PO BID AST 121 WILL DO EKG NOW Plan: CONTINUE DETOX,K DUR FOR K REPLACEMENT
--- NOTE | 2017-06-26 12:59 | PN ---
[facility] Progress Note Note: REPEAT EKG NSR,PROLONG QT NO CHEST PAIN,NO SOB,NO DIZZINESS CONTINUE DETOX,CLOSE MONITORING
--- NOTE | 2017-06-26 13:39 | EKG ---
Test Reason : Blood Pressure : / mmHG Vent. Rate : 105 BPM Atrial Rate : 370 BPM P-R Int : 000 ms QRS Dur : 090 ms QT Int : 362 ms P-R-T Axes : 000 043 023 degrees QTc Int : 478 ms ATRIAL FLUTTER WITH VARIABLE A-V BLOCK ABNORMAL ECG WHEN COMPARED WITH ECG OF 25-JUN-2017 20:02, NO SIGNIFICANT CHANGE WAS FOUND Confirmed by DARIO MORAN MD ([id number]) on 06/26/2017 1:39:29 PM Referred By: Confirmed By:DARIO MORAN MD
--- NOTE | 2017-06-26 13:41 | EKG ---
Test Reason : Blood Pressure : / mmHG Vent. Rate : 100 BPM Atrial Rate : 375 BPM P-R Int : 000 ms QRS Dur : 084 ms QT Int : 382 ms P-R-T Axes : 000 033 033 degrees QTc Int : 492 ms ATRIAL FLUTTER WITH VARIABLE A-V BLOCK T WAVE ABNORMALITY, CONSIDER LATERAL ISCHEMIA PROLONGED QT ABNORMAL ECG WHEN COMPARED WITH ECG OF 25-JUN-2017 19:21, QT HAS LENGTHENED Confirmed by DEAN VILLAVICENCIO, DARIO ([id number]) on 06/26/2017 1:40:34 PM Referred By: Confirmed By:DARIO MORAN MD
--- NOTE | 2017-06-26 13:42 | EKG ---
Test Reason : Blood Pressure : / mmHG Vent. Rate : 108 BPM Atrial Rate : 357 BPM P-R Int : 000 ms QRS Dur : 088 ms QT Int : 328 ms P-R-T Axes : 000 028 025 degrees QTc Int : 439 ms POOR DATA QUALITY, INTERPRETATION MAY BE ADVERSELY AFFECTED ATRIAL FLUTTER WITH VARIABLE A-V BLOCK ABNORMAL ECG WHEN COMPARED WITH ECG OF 19-JAN-2017 17:10, ATRIAL FLUTTER HAS REPLACED SINUS RHYTHM NONSPECIFIC T WAVE ABNORMALITY NOW EVIDENT IN LATERAL LEADS Confirmed by DARIO MORAN MD ([id number]) on 06/26/2017 1:41:27 PM Referred By: Confirmed By:DARIO MORAN MD
--- NOTE | 2017-06-26 14:12 | CONSULT ---
[facility] Psychiatric Consult - Data Date of interview: 06/26/17 Admission source: [facility] Identifying data: Another admisssion to [facility] for this 51 y/o female seeking detox treatment on for alcohol dependence.Patient is ,a mother of one,domiciled,unemployed and supported on Public Assistance. Substance Abuse History: Confirmed by patient in this interview.See details in current [facility] report : Smoking history: Current every day smoker. Have you smoked in the past 12 months: Yes. Aproximately how many cigarettes per day: 20. Cigars Per Day: 0. Hx Chewing Tobacco Use: No. Initiated information on smoking cessation: Yes. 'Breaking Loose' booklet given: 06/25/17. - Substance & Tx. History. Hx Alcohol Use: Yes. Hx Substance Use: No. Substance Use Type : Alcohol. Hx Substance Use Treatment: Yes (Detox: 01/2017). - Substances Abused. Alcohol. Route: Oral. Frequency: Daily. Amount used: 1 pint of liquor / 3 beers. Age of first use: 19. Date of Last Use: 06/25/17 Medical History: History of urinay tract infections (UTI),hypertension and antecedent of cerebrovascular accident (2006). Psychiatric History: No reported history of psychiatric hospitalizations.Patient declares that she sees the psychiatrist assigned to her supportive housing program (monthly basis).Diagnosed with MDD as per self- report.Claims made for psychotropic medications but the patient has difficulty remembering the names of the prescribed drugs (naltrexone and vistaril are identified as the drugs,based on pharmacy claims of 03/05/17 at [facility]).Questionable adherence to outpatient psychiatric care.Ms Duran denies history of suicide attempts. Physical/Sexual Abuse/Trauma History: Patient denies history of abuse. Additional Comment: Drug Screen is negative. Mental Status Exam - Mental Status Exam Alert and Oriented to: Time, Place, Person Cognitive Function: Grossly Intact Patient Appearance: Unkempt, Disheveled Mood: Nervous, Withdrawn, Anxious Affect: Mood Congruent Patient Behavior: Passive, Fatigued, Cooperative Speech Pattern: Clear Voice Loudness: Normal Thought Process: Goal Oriented Thought Disorder: Not Present Hallucinations: Denies Suicidal Ideation: Denies Homicidal Ideation: Denies Insight/Judgement: Poor Sleep: Poorly, Difficulty falling asleep Appetite: Good Muscle strength/Tone: Normal Gait/Station: Normal Psychiatric Findings - Problem List (Henriette 1, 2,3) (1) Alcohol dependence with uncomplicated withdrawal Current Visit: Yes Status: Acute (2) Nicotine dependence Current Visit: Yes Status: Acute (3) Alcohol-induced mood disorder Current Visit: Yes Status: Suspected (4) Insomnia Current Visit: Yes Status: Acute Qualifiers: Insomnia type: unspecified Qualified Code(s): G47.00 - Insomnia, unspecified - Initial Treatment Plan Initial Treatment Plan: Old records revisited.Psychoeducation and support provided in this session.Detoxification in progress.Ambien 5 mg po hs prn.Ordered.Side effects/benefits discussed with patient.Consent (verbal) given.Observation.
[2017-06-26] MEDS: ZOLPIDEM TARTRATE 5 MG TABLET PO PRN (22:33)
[2017-06-26] MEDS: THIAMINE HCL 100 MG TABLET (FP) PO SCH (22:33)
[2017-06-27] MEDS: chlordiazePOXIDE HCL 25 MG CAPSULE PO SCH ×3 (05:52→17:54)
[2017-06-27 10:21] LABS: ALBUMIN 3.2 g/dl (3.4-5.0); ANION GAP 6 (8-16); BLOOD UREA NITROGEN 10 mg/dL (7-18); CALCIUM 8.7 mg/dL (8.5-10.1); CHLORIDE 105 mmol/L (98-107); CO2 27 mmol/L (21-32); CREATININE 0.4 mg/dL (0.55-1.02); GLUCOSE,RANDOM 88 mg/dL (74-106); POTASSIUM 3.6 mmol/L (3.5-5.1); SGOT/AST 101 U/L (15-37); SGPT/ALT 55 U/L (12-78); SODIUM 138 mmol/L (136-145)
[2017-06-27 10:23] LABS: ALK PHOS 220 U/L (45-117); BILIRUBIN,TOTAL 2.8 mg/dL (0.2-1.0); TOT PROT 7.3 g/dl (6.4-8.2)
[2017-06-27] MEDS: POTASSIUM CHLORIDE TABS 20 MEQ TABLET.ER (FP) PO SCH ×2 (10:32→22:39)
[2017-06-27] MEDS: PRENATAL VITAMINS W/ FOLIC ACID TABLET (FP) PO SCH (10:32)
[2017-06-27] MEDS: NICOTINE 21 MG/24 HOURS TOPICAL PATCH TD SCH (10:33)
--- NOTE | 2017-06-27 13:11 | PN ---
[facility] CIWA - CIWA Score Nausea/Vomitin-No Nausea/No Vomiting Muscle Tremors: 3 Anxiety: 3 Agitation: 3 Paroxysmal Sweats: 1-Minimal Palms Moist Orientation: 0-Oriented Tacttile Disturbances: 1-Very Mild Itch/Numbness Auditory Disturbances: 0-None Visual Disturbances: 0-None Headache: 0-None Present CIWA-Ar Total Score: 11 [facility] Progress Note (SOAP) Subjective: tremor sweating irritable Objective: 06/27/17 13:12 Vital Signs Temperature 97.5 F L 06/27/17 10:00 Pulse Rate 90 06/27/17 10:00 Respiratory Rate 18 06/27/17 10:00 Blood Pressure 125/89 06/27/17 10:00 O2 Sat by Pulse Oximetry (%) Laboratory Last Values WBC 5.3 K/mm3 (4.0-10.0) 06/26/17 08:00 RBC 3.84 M/mm3 (3.60-5.2) 06/26/17 08:00 Hgb 13.8 GM/dL (10.7-15.3) 06/26/17 08:00 Hct 41.4 % (32.4-45.2) 06/26/17 08:00 MCV 107.6 fl (80-96) H 06/26/17 08:00 MCH 35.8 pg (25.7-33.7) H 06/26/17 08:00 MCHC 33.3 g/dl (32.0-36.0) 06/26/17 08:00 RDW 13.3 % (11.6-15.6) 06/26/17 08:00 Plt Count 118 K/MM3 (134-434) L 06/26/17 08:00 MPV 9.9 fl (7.5-11.1) 06/26/17 08:00 Sodium 138 mmol/L (136-145) 06/27/17 07:40 Potassium 3.6 mmol/L (3.5-5.1) 06/27/17 07:40 Chloride 105 mmol/L (98-107) 06/27/17 07:40 Carbon Dioxide 27 mmol/L (21-32) 06/27/17 07:40 Anion Gap 6 (8-16) L 06/27/17 07:40 BUN 10 mg/dL (7-18) D 06/27/17 07:40 Creatinine 0.4 mg/dL (0.55-1.02) L 06/27/17 07:40 Creat Clearance w eGFR > 60 (>60) 06/27/17 07:40 Random Glucose 88 mg/dL (74-106) 06/27/17 07:40 Calcium 8.7 mg/dL (8.5-10.1) 06/27/17 07:40 Total Bilirubin 2.8 mg/dL (0.2-1.0) H 06/27/17 07:40 AST 101 U/L (15-37) H 06/27/17 07:40 ALT 55 U/L (12-78) 06/27/17 07:40 Alkaline Phosphatase 220 U/L (45-117) H 06/27/17 07:40 Total Protein 7.3 g/dl (6.4-8.2) 06/27/17 07:40 Albumin 3.2 g/dl (3.4-5.0) L 06/27/17 07:40 Urine Color Straw 06/25/17 20:09 Urine Appearance Clear 06/25/17 20:09 Urine pH 6.0 (5.0-8.0) 06/25/17 20:09 Ur Specific [place] 1.001 (1.001-1.035) 06/25/17 20:09 Urine Protein Negative (NEGATIVE) 06/25/17 20:09 Urine Glucose (UA) Negative (NEGATIVE) 06/25/17 20:09 Urine Ketones Negative (NEGATIVE) 06/25/17 20:09 Urine Blood Negative (NEGATIVE) 06/25/17 20:09 Urine Nitrite Negative (NEGATIVE) 06/25/17 20:09 Urine Bilirubin Negative (NEGATIVE) 06/25/17 20:09 Urine Urobilinogen Negative mg/dL (0.2-1.0) 06/25/17 20:09 Ur Leukocyte Esterase Negative (NEGATIVE) 06/25/17 20:09 RPR Titer Nonreactive (NONREACTIVE) 06/26/17 08:00 Hepatitis C Antibody 0.1 s/co ratio (0.0-0.9) 06/26/17 08:00 HIV 1&2 Antibody Screen Negative 06/26/17 08:00 HIV P24 Antigen Negative 06/26/17 08:00 lab noted Assessment: 06/27/17 13:12 withdrawal sx Plan: continue detox
[2017-06-27] MEDS: THIAMINE HCL 100 MG TABLET (FP) PO SCH (22:39)
[2017-06-27] MEDS: chlordiazePOXIDE 5 MG CAPSULE PO SCH (22:39)
[2017-06-27] MEDS: ZOLPIDEM TARTRATE 5 MG TABLET PO PRN (22:39)
[2017-06-28] MEDS: chlordiazePOXIDE 5 MG CAPSULE PO SCH ×3 (05:42→17:30)
[2017-06-28] MEDS: NICOTINE 21 MG/24 HOURS TOPICAL PATCH TD SCH (10:44)
[2017-06-28] MEDS: PRENATAL VITAMINS W/ FOLIC ACID TABLET (FP) PO SCH (10:44)
[2017-06-28] MEDS: POTASSIUM CHLORIDE TABS 20 MEQ TABLET.ER (FP) PO SCH ×2 (10:44→22:27)
--- NOTE | 2017-06-28 10:49 | PN ---
[facility] Progress Note (SOAP) Subjective: chronic body aches Objective: 06/28/17 10:46 Vital Signs Temperature 97.8 F 06/28/17 06:11 Pulse Rate 80 06/28/17 06:11 Respiratory Rate 18 06/28/17 06:11 Blood Pressure 127/83 06/28/17 06:11 O2 Sat by Pulse Oximetry (%) aaox3 ambulating no acute distress Assessment: 06/28/17 10:48 withdrawal sx Plan: continue detox increase fluids d/c in am
[2017-06-28] MEDS: chlordiazePOXIDE HCL 10 MG CAPSULE PO SCH (22:26)
[2017-06-28] MEDS: ZOLPIDEM TARTRATE 5 MG TABLET PO PRN (22:26)
[2017-06-28] MEDS: THIAMINE HCL 100 MG TABLET (FP) PO SCH (22:26)
[2017-06-29] MEDS: chlordiazePOXIDE HCL 10 MG CAPSULE PO SCH (06:25)
[2017-06-29 06:30] VITALS: TEMP 96.6
--- NOTE | 2017-06-29 08:48 | DS ---
[facility] Detox Discharge Summary Admission Date: 06/25/17 Discharge Date: 06/29/17 - History Present History: Alcohol Dependence - Physical Exam Results Vital Signs: Vital Signs Temperature 96.6 F L 06/29/17 06:00 Pulse Rate 81 06/29/17 06:00 Respiratory Rate 18 06/29/17 06:00 Blood Pressure 108/64 06/29/17 06:00 O2 Sat by Pulse Oximetry (%) - Treatment Hospital Course: Detox Protocol Followed, Detoxed Safely, Responded well, Discharged Condition Good, Rehab Referral Accepted - Medication Discharge Medications: Ambulatory Orders NK [No Known Home Medication] 06/25/17 - Diagnosis (1) Alcohol dependence with uncomplicated withdrawal Current Visit: Yes Status: Chronic (2) Insomnia Current Visit: Yes Status: Acute Qualifiers: Insomnia type: unspecified Qualified Code(s): G47.00 - Insomnia, unspecified (3) Nicotine dependence Current Visit: Yes Status: Chronic (4) History of hypertension Current Visit: Yes Status: Chronic (5) Alcohol-induced mood disorder Current Visit: Yes Status: Suspected (6) Anxiety and depression Current Visit: No Status: Acute (7) Fever Current Visit: No Status: Acute Qualifiers: Fever type: unspecified Qualified Code(s): R50.9 - Fever, unspecified (8) H/O recurrent urinary tract infection Current Visit: No Status: Acute (9) Rapid atrial fibrillation Current Visit: No Status: Acute (10) Systemic inflammatory response syndrome (SIRS) Current Visit: No Status: Acute (11) UTI (urinary tract infection) Current Visit: No Status: Acute Qualifiers: Urinary tract infection type: acute cystitis Hematuria presence: without hematuria Qualified Code(s): N30.00 - Acute cystitis without hematuria (12) Drug-induced mood disorder Current Visit: No Status: Suspected - AMA Did Patient Leave Against Medical Advice: No
[2017-06-29] MEDS: PRENATAL VITAMINS W/ FOLIC ACID TABLET (FP) PO SCH (09:05)
[2017-06-29] MEDS: POTASSIUM CHLORIDE TABS 20 MEQ TABLET.ER (FP) PO SCH (09:05)
[2017-06-29 10:27] VITALS: BP 96/62; PULSE 79
[2017-06-29] MEDS: NICOTINE 21 MG/24 HOURS TOPICAL PATCH TD SCH (11:09)
== END 2017-06-29 12:10 | disposition home or self-care (01) | DRG 775 ==
LOC: YASAS 14:16 → Y6N 18:07
PROVIDERS: ADMIT Internal Medicine; ATTEND Internal Medicine
PROC: HZ2ZZZZ Detoxification Services for Substance Abuse Treatment (ICD-10-PCS; principal; 2017-06-25)
DX: F10.230 Alcohol dependence with withdrawal, uncomplicated (principal); F10.24 Alcohol dependence with alcohol-induced mood disorder; F17.210 Nicotine dependence, cigarettes, uncomplicated; F41.8 Other specified anxiety disorders; F19.24 Other psychoactive substance dependence with psychoactive substance-induced mood disorder; G47.00 Insomnia, unspecified; E78.00 Pure hypercholesterolemia, unspecified; I10 Essential (primary) hypertension; I48.91 Unspecified atrial fibrillation; R50.9 Fever, unspecified; N30.00 Acute cystitis without hematuria; R65.10 Systemic inflammatory response syndrome (SIRS) of non-infectious origin without acute organ dysfunction; Z87.440 Personal history of urinary (tract) infections; Z86.73 Personal history of transient ischemic attack (TIA), and cerebral infarction without residual deficits
CPT/HCPCS: 36415; 80053; 81003; 85027; 86593; 86803; 87389; 93005; 93010

== ENCOUNTER 2017-06-25 22:52 | Emergency (ER) | payer BC ==
[2017-06-25 23:17] VITALS: BP 113/74; PULSE 124; TEMP 98.7; BMI 26.1
--- NOTE | 2017-06-25 23:32 | PDOC ---
History of Present Illness <Cinda Graf - Last Filed: 06/26/17 03:21> - General History Source: Patient Exam Limitations: No Limitations - History of Present Illness Initial Comments: 06/26/17 00:42 The patient is a 51 year old female, with a significant past medical history of HTN, who presents to the emergency department from [facility] with, atrial flutter. She reports to be at [facility] for one day for alcoholism. She reports to be asymptomatic. She denies recent fevers, chills, headache or dizziness. She denies recent nausea, vomit, diarrhea or constipation. She denies recent dysuria, frequency, urgency or hematuria. She denies recent chest pain or shortness of breath. Allergies: NKA Past surgical history: None reported. Social history: Alcoholic <Zak Luna - Last Filed: 06/26/17 03:23> - General Chief Complaint: Tachycardia Stated Complaint: ABNORMAL EKG Time Seen by Provider: 06/25/17 23:12 Past History - Past Medical History Anemia: No (denies ) Asthma: No Cancer: No Cardiac Disorders: No CVA: Yes (OLD CVA IN 2006) COPD: No CHF: No Dementia: No Diabetes: No GI Disorders: No Disorders: No HTN: Yes (not taking any meds) Hypercholesterolemia: No Kidney Stones: No Liver Disease: No Seizures: No Thyroid Disease: No - Surgical History Abdominal Surgery: No Appendectomy: No Cardiac Surgery: No Cholecystectomy: No Lung Surgery: No Neurologic Surgery: No Orthopedic Surgery: No - Reproductive History PID: No - Immunization History Immunization Up to Date: Yes - Suicide/Smoking/Psychosocial Hx Smoking History: Never smoked Have you smoked in the past 12 months: No Number of Cigarettes Smoked Daily: 20 Cigars Per Day: 0 Information on smoking cessation initiated: No 'Breaking Loose' booklet given: 06/25/17 Hx Alcohol Use: Yes Drug/Substance Use Hx: No Substance Use Type: Alcohol Hx Substance Use Treatment: Yes (Detox: 01/2017) <Cinda Graf - Last Filed: 06/26/17 03:21> <Zak Luna - Last Filed: 06/26/17 03:23> - Past Medical History Allergies/Adverse Reactions: Allergies Allergy/AdvReac Type Severity Reaction Status Date / Time No Known Allergies Allergy Verified 06/25/17 23:17 Home Medications: Ambulatory Orders NK [No Known Home Medication] 06/25/17 Review of Systems - Review of Systems Able to Perform ROS?: Yes Comments:: 06/26/17 00:43 GENERAL/CONSTITUTIONAL: No fever or chills. No weakness. HEAD, EYES, EARS, NOSE AND THROAT: No change in vision. No ear pain or discharge. No sore throat. CARDIOVASCULAR: +Atrial flutter. No chest pain or shortness of breath. RESPIRATORY: No cough, wheezing, or hemoptysis. GASTROINTESTINAL: No nausea, vomiting, diarrhea or constipation. GENITOURINARY: No dysuria, frequency, or change in urination. MUSCULOSKELETAL: No joint or muscle swelling or pain. No neck or back pain. SKIN: No rash NEUROLOGIC: No headache, vertigo, loss of consciousness, or change in strength/ sensation. ENDOCRINE: No increased thirst. No abnormal weight change. HEMATOLOGIC/LYMPHATIC: No anemia, easy bleeding, or history of blood clots. ALLERGIC/IMMUNOLOGIC: No hives or skin allergy. All Other Systems: Reviewed and Negative <Zak Luna - Last Filed: 06/26/17 03:23> *Physical Exam - Vital Signs Last Vital Signs Temp Pulse Resp BP Pulse Ox 98.7 F 124 H 18 113/74 97 06/25/17 23:10 06/25/17 23:10 06/25/17 23:10 06/25/17 23:10 06/25/17 23:10 <Cinda Graf - Last Filed: 06/26/17 03:21> - Vital Signs Last Vital Signs Temp Pulse Resp BP Pulse Ox 98.7 F 124 H 18 113/74 97 06/25/17 23:10 06/25/17 23:10 06/25/17 23:10 06/25/17 23:10 06/25/17 23:10 - Physical Exam Comments: 06/26/17 03:23 GENERAL: Awake, alert, and fully oriented, in no acute distress HEAD: No signs of trauma EYES: PERRLA, EOMI, sclera anicteric, conjunctiva clear ENT: Auricles normal inspection, hearing grossly normal, nares patent, oropharynx clear without exudates. Moist mucosa NECK: Normal ROM, supple, no lymphadenopathy, JVD, or masses LUNGS: Breath sounds equal, clear to auscultation bilaterally. No wheezes, and no crackles HEART: +Irregularly irregular heart beat. Normal S1 and S2, no murmurs, rubs or gallops ABDOMEN: Soft, nontender, normoactive bowel sounds. No guarding, no rebound. No masses EXTREMITIES: Normal range of motion, no edema. No clubbing or cyanosis. No cords, erythema, or tenderness NEUROLOGICAL: Cranial nerves II through XII grossly intact. Normal speech, normal gait SKIN: Warm, Dry, normal turgor, no rashes or lesions noted. <Zak Luna - Last Filed: 06/26/17 03:23> ED Treatment Course - LABORATORY CBC & Chemistry Diagram: 06/26/17 01:02 06/26/17 01:02 <Cinda Graf - Last Filed: 06/26/17 03:21> - LABORATORY CBC & Chemistry Diagram: 06/26/17 01:02 06/26/17 01:02 <Zak Luna - Last Filed: 06/26/17 03:23> Medical Decision Making - Medical Decision Making 06/25/17 23:43 Pt went to [facility], and at admission they got a routine EKG and found patient to be in rapid afib. Pt comes here for treatment and admission. She has no idea that she is in afib. She tells us that she has HTN but she is noncompliant with meds and she has no idea what meds she is supposed to be on. 06/25/17 23:45 Pt is afebrile, she is in no distress. She is drunk slightly. She has clear lungfields and she is tachycardic. She willl initially be treated with a banana bag. 06/26/17 00:19 CXR is clear 06/26/17 03:21 Pt's heart rate is back to NSR after 1 L IVF and labs are normal, so she will be sent back to [facility] to continue alcohol detox. <Cinda Graf - Last Filed: 06/26/17 03:21> *DC/Admit/Observation/Transfer - Discharge Dispostion Admit: No <Cinda Graf - Last Filed: 06/26/17 03:21> - Attestations Scribe Attestion: 06/26/17 00:45 Documentation prepared by Zak Luna, acting as er medical technician for Cinda Graf MD. <Zak Luna - Last Filed: 06/26/17 03:23> Diagnosis at time of Disposition: Rapid atrial fibrillation, Alcohol dependence, Electrocardiogram showing normal sinus rhythm - Discharge Dispostion Condition at time of disposition: Fair
[2017-06-25] MEDS ORDERED: FOLIC ACID INJECTION - 1 MG, THIAMINE HCL 100 MG, MULTIVIT INJECTION ADULT 10 ML in SOD... IVPB ONE (23:33)
[2017-06-26 01:17] LABS: BASO % 0.5 % (0-2.0); EOS % 1.1 % (0-4.5); HEMATOCRIT 42.1 % (32.4-45.2); HEMOGLOBIN 14.5 GM/dL (10.7-15.3); LYMPH % 32.4 % (8-40); MCH 36.6 pg (25.7-33.7); MCHC 34.5 g/dl (32.0-36.0); MEAN CELL VOLUME 106.2 fl (80-96); MEAN PLT VOLUME 9.3 fl (7.5-11.1); MONO % 17.2 % (3.8-10.2); NEUT % 48.8 % (42.8-82.8); PLATELET COUNT 128 K/MM3 (134-434); RBC 3.97 M/mm3 (3.60-5.2); RDW 13.6 % (11.6-15.6); WHITE BLOOD COUNT 6.7 K/mm3 (4.0-10.0)
[2017-06-26 01:19] LABS: ADD RBC MORPHOLOGY YES
[2017-06-26 01:30] LABS: INR 1.39 (0.82-1.09); PROTHROMBIN TIME (PATIENT) 15.7 SEC (9.98-11.88)
[2017-06-26 01:39] LABS: ALBUMIN 3.5 g/dl (3.4-5.0); ANION GAP 8 (8-16); BILIRUBIN,TOTAL 1.6 mg/dL (0.2-1.0); BLOOD UREA NITROGEN 8 mg/dL (7-18); CALCIUM 8.8 mg/dL (8.5-10.1); CHLORIDE 105 mmol/L (98-107); CO2 27 mmol/L (21-32); CREATININE 0.4 mg/dL (0.55-1.02); GLUCOSE,RANDOM 94 mg/dL (74-106); POTASSIUM 3.9 mmol/L (3.5-5.1); SGOT/AST 149 U/L (15-37); SGPT/ALT 61 U/L (12-78); SODIUM 140 mmol/L (136-145); TOT PROT 7.5 g/dl (6.4-8.2)
[2017-06-26 01:42] LABS: ALK PHOS 255 U/L (45-117)
[2017-06-26 02:03] LABS: ANISOCYTOSIS 0; MACROCYTOSIS 1+; PLATELET ESTIMATE DECREASED; TARGET CELLS 2+
[2017-06-26] MEDS ORDERED: FOLIC ACID 1 MG TABLET (FP) PO ONE (02:17)
[2017-06-26] MEDS ORDERED: chlordiazePOXIDE HCL 25 MG CAPSULE PO ONE (02:31)
[2017-06-26] MEDS ORDERED: FOLIC ACID 1 MG TABLET (FP) ONE (02:42)
--- NOTE | 2017-06-26 05:02 | PN ---
Teaching Attending Note Name of Resident: Chiquita Castillo
[2017-06-26] MEDS ORDERED: HEPARIN NA (PORCINE) 5,000 UNITS/ML 1ML VIAL SQ SCH (06:00)
[2017-06-26] MEDS ORDERED: PRENATAL VITAMINS W/ FOLIC ACID TABLET (FP) PO SCH (10:00)
[2017-06-26] MEDS ORDERED: THIAMINE HCL 100 MG TABLET (FP) PO SCH (10:00)
--- NOTE | 2017-06-26 13:25 | EKG ---
Test Reason : Blood Pressure : / mmHG Vent. Rate : 074 BPM Atrial Rate : 074 BPM P-R Int : 138 ms QRS Dur : 082 ms QT Int : 436 ms P-R-T Axes : 045 031 039 degrees QTc Int : 483 ms NORMAL SINUS RHYTHM POSSIBLE LEFT ATRIAL ENLARGEMENT PROLONGED QT NONSPECIFIC T WAVE ABNORMALITY ABNORMAL ECG Confirmed by DARIO MORAN MD ([id number]) on 06/26/2017 1:25:06 PM Referred By: Confirmed By:DARIO MORAN MD
--- NOTE | 2017-06-27 11:33 | EKG ---
Test Reason : Blood Pressure : / mmHG Vent. Rate : 071 BPM Atrial Rate : 071 BPM P-R Int : 134 ms QRS Dur : 090 ms QT Int : 442 ms P-R-T Axes : 058 038 050 degrees QTc Int : 480 ms NORMAL SINUS RHYTHM POSSIBLE LEFT ATRIAL ENLARGEMENT PROLONGED QT ABNORMAL ECG WHEN COMPARED WITH ECG OF 26-JUN-2017 03:13, NO SIGNIFICANT CHANGE WAS FOUND Confirmed by DARIO MORAN MD ([id number]) on 06/27/2017 11:33:19 AM Referred By: Confirmed By:DARIO MORAN MD
== END 2017-06-26 06:34 | disposition home or self-care (01) ==
LOC: JER 22:52 → UNDOADMIN 06-26 02:33 → JERBED 06-26 02:33 → UNDOADMIN 06-26 02:46 → JER 06-26 06:34
PROC: 3E033GC Introduction of Other Therapeutic Substance into Peripheral Vein, Percutaneous Approach (ICD-10-PCS; principal; 2017-06-25)
DX: I48.91 Unspecified atrial fibrillation (principal); I10 Essential (primary) hypertension; Z91.14 Patient's other noncompliance with medication regimen; F10.20 Alcohol dependence, uncomplicated
CPT/HCPCS: 36415; 71045-TC; 80053; 80307; 82550; 82553; 84443; 84484; 85025; 85610; 85730; 93005; 93010; 96365; 96366; 99281-25